=== PATIENT | female | born 1985 | race Caucasian/White ===

== ENCOUNTER 2019-07-11 17:37 | Inpatient (IN) | payer MEDICARE, OTHER ==
[~2019-07-11] VITALS: Ht 170.2 cm; Wt 134.8 kg
[2019-07-11] MEDS ORDERED: METO1TAB7 PO (17:53)
[2019-07-11] MEDS ORDERED: CITA20TA6 PO (17:53)
[2019-07-11] MEDS ORDERED: GABA-843 PO (17:53)
[2019-07-11] MEDS ORDERED: AMLO5TAB6 PO (17:53)
[2019-07-11 18:36] LABS: BASO % 0.2 % (0.0-1.0); EOS % 0.3 % (0.0-3.0); HEMATOCRIT 31.3 % (36.0-47.0); HEMOGLOBIN 8.7 g/dl (12.0-15.5); LYMPH # 1.2 10^3/uL (1.5-5.0); MEAN CORPUSCULAR HEMOGLOBIN 23.8 pg (27.0-33.0); MEAN CORPUSCULAR HGB CONC 27.8 g/dl (32.0-36.5); MEAN CORPUSCULAR VOLUME 85.5 fl (80.0-96.0); MONO # 1.3 10^3/uL (0.0-0.8); MONO % 8.6 % (0.0-5.0); NEUTROPHILS # 12.1 10^3/uL (1.5-8.5); PLATELET COUNT, AUTOMATED 238 10^3/uL (150-450); RED BLOOD COUNT 3.66 10^6/uL (4.00-5.40); WHITE BLOOD COUNT 14.8 10^3/uL (4.0-10.0)
[2019-07-11 19:09] LABS: ALBUMIN 3.2 GM/DL (3.2-5.2); ALT/SGPT 63 U/L (12-78); BILIRUBIN,DIRECT 1.9 MG/DL (0.0-0.2); BILIRUBIN,TOTAL 2.8 MG/DL (0.2-1.0); BLOOD UREA NITROGEN 8 MG/DL (7-18); CALCIUM LEVEL 8.9 MG/DL (8.5-10.1); CARBON DIOXIDE LEVEL 19 MEQ/L (21-32); CHLORIDE LEVEL 102 MEQ/L (98-107); CREATININE FOR GFR 0.66 MG/DL (0.55-1.30); GLOMERULAR FILTRATION RATE > 60.0 (>60); GLUCOSE, FASTING 145 MG/DL (70-100); LIPASE 16374 U/L (73-393); POTASSIUM SERUM 4.1 MEQ/L (3.5-5.1); SODIUM LEVEL 134 MEQ/L (136-145); TOTAL PROTEIN 7.3 GM/DL (6.4-8.2)
[2019-07-11] MEDS ORDERED: ONDANSETRON 4MG/2ML VIAL (J2405) IV ONE (19:30)
[2019-07-11] MEDS ORDERED: MORPHINE 4 MG/ML 1ML VIAL/SYRINGE (J2270) IV ONE ×2 (19:30→22:45)
[2019-07-11] MEDS ORDERED: ISOVUE-370 76% 100ML VIAL (Q9967) As Ordered ONE (19:37)
[2019-07-11 19:50] LABS: URINE PREG TEST NEGATIVE (NEGATIVE)
[2019-07-11] MEDS: NS 1,000 ML IV SCH (20:31)
--- NOTE | 2019-07-11 22:34 | REPVR ---
PROCEDURE INFORMATION: Exam: CT Abdomen and Pelvis With Contrast Exam date and time: 07/11/2019 8:03 PM Clinical history: 34 years old, female; Abdominal pain; Epigastric; Patient HX: Elevatd lipase; Additional info: Upper abd pain, elevated lipase TECHNIQUE: Imaging protocol: Computed tomography of the abdomen and pelvis with intravenous contrast. Radiation optimization: All CT scans at this facility use at least one of these dose optimization techniques: automated exposure control; mA and/or kV adjustment per patient size (includes targeted exams where dose is matched to clinical indication); or iterative reconstruction. Contrast material: ISOVUE 370; Contrast volume: 100 ml; Contrast route: IV; COMPARISON: No relevant prior studies available. FINDINGS: Lungs: Clear lung bases. Heart: The heart is normal in size and there is no pericardial effusion. Liver: There is severe fatty infiltration of the liver. Enhancing lesion anterior aspect of the liver is probably a hemangioma. A followup CT scan in 6 months would be important for reevaluation. If there are old studies they would be helpful to obtain for comparison. Gallbladder and bile ducts: The gallbladder is fluid-filled. Spleen: There is mild prominence of the spleen. Adrenals: Normal. No mass. Kidneys and ureters: There is enhancement of the kidneys. Stomach and bowel: The patient has had gastric bypass procedure. There postoperative changes in the left abdomen are previous gastric bypass. Appendix: No evidence of appendicitis. Intraperitoneal space: There is no evidence of pneumoperitoneum. Pancreas: There is opacification of the SMA. There is hazy increased density along the posterior margin of the pancreas and surrounding the celiac artery and SMA. This is also along the course of the SMV and probably the result of inflammation and phlegmon from pancreatitis. Followup studies would be helpful to see if this resolves. Fluid and inflammation is noted anterior to gerotas fascia left kidney. There is opacification of the aorta which appears intact. Lymph nodes: There is no evidence of lymphadenopathy. Bladder: A small amount of urine in the urinary bladder. Reproductive: Normal size uterus. There is a 3 CM cyst of the right ovary and also calcification of the right ovary. I would recommend correlation with pelvic ultrasound. Cyst with calcification can be indicative of a teratoma. If there are old studies they would be great benefit for comparison. Bones/joints: There are old nonunited rib fracture is posterior ribs bilaterally. Soft tissues: Unremarkable. Other findings: There is opacification of the SMV. IMPRESSION: 1. Severe fatty infiltration of the liver. 2. Enhancing liver lesion probably a hemangioma recommend followup CT in 6 months or obtaining old exams for comparison. 3. Inflammation, phlegmon and fluid along the posterior aspect of the pancreas and surrounding the celiac artery and SMA. This extends along gerotas fascia on the left and probably the result of changes of pancreatitis. 4. 3 cm cystic structure of the right ovary with calcification could be a teratoma. Recommend correlation with ultrasound and also obtaining old exams for comparison. Electronically signed by: Sohan Layne On 07/11/2019 22:34:11 PM
[2019-07-11 23:18] LABS: ETHYL ALCOHOL (ETHANOL) < 0.003 % (0.000-0.010)
--- NOTE | 2019-07-11 23:25 | HPEPDOC ---
[facility] Medical History & Physical Date of Admission Jul 11, 2019 Date of Service: Jul 11, 2019 Primary Care Physician: A Attending Physician: ROSANA CALERO MD History and Physical TIME OF SERVICE: 09 21 CHIEF COMPLAINT: abdominal pain HISTORY OF PRESENT ILLNESS: This is a 34 year female who presents with complaints of 8 out of 10 in severity, one day in duration, left-sided abdominal pain that radiates to her back. The pain improved to 4 of 10 in severity after receiving pain meds in the ED. She attributes the pain to drinking a lot due to life stressors. Associated symptoms include nausea. She denies vomiting. Per discussion with the ED provider her last drink was on Wednesday. 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 She received morphine, & Zofran REVIEW OF SYSTEMS: 12 point review of systems negative except as listed in HPI PAST MEDICAL/ SURGICAL HISTORY: Chronic hypertension. Status post gastric bypass. Anxiety Depression. Fibro-myalgia. Status post right L5-S1 decompressive lumbar laminectomy SOCIAL HISTORY: Smokes daily Drinks alcohol frequently FAMILY HISTORY: Crohns Hypertension Hypothyroidism ALLERGIES: Please see below. HOME MEDICATIONS: Please see below. PHYSICAL EXAMINATION: VITAL SIGNS: Please see below. GENERAL APPEARANCE: Well-nourished, well-developed, not in apparent distress HEENT: Normocephalic atraumatic, mucous members moist and pink CARDIOVASCULAR: Rate and rhythm. No murmurs, rubs or gallops, no lower extremity edema, radial pulses intact LUNGS: Clear to auscultation bilaterally on room air ABDOMEN: Left mid upper abdomen tender on palpation, bowel sounds are hypoactive MUSCULOSKELETAL: Range of motion intact in all 4 extremities INTEGUMENT: there is no Austin sign, no Foxs sign, no Bagley Kennedy sign NEUROLOGICAL: Cranial 2-12 are grossly intact. Speech is not dysarthric PSYCHIATRIC: Alert and oriented to person, place and time, able to understand and follow commands LABORATORY DATA: See below. IMAGING: CT of the abdomen showed "IMPRESSION: 1. Severe fatty infiltration of the liver. 2. Enhancing liver lesion probably a hemangioma recommend follow up CT in 6 months or obtaining old exams for comparison. 3. Inflammation, phlegmon and fluid along the posterior aspect of the pancreas and surrounding the celiac artery and SMA. This extends along gerotas fascia on the left and probably the result of changes of pancreatitis. 4. 3 cm cystic structure of the right ovary with calcification could be a iveth sylvie. Recommend correlation with ultrasound and also obtaining old exams for comparison. " MICROBIOLOGY: Please see below. ASSESSMENT: is a 34 yr old F w a PMH of Chronic hypertension, hx of gastric bypass, Anxiety, Depression and Fibro-myalgia who is admitted for acute pancreatitis. PLAN: 1. Acute Pancreatitis Diagnosis made on the basis of abdominal pain, elevated lipase, and CT findings Serum ethanol within normal limit AST and alkaline phosphatase elevated BISAP Score to predict mortality in pancreatitis = 1 points = increasing risk of mortality Plan: Plan: NPO/ IVF / f/u serum ETO & liver US / IV toradol & morphine PRN for pain 2. SIRS / Sepsis possibly secondary to UTI Symptoms include abdominal pain UA is positive for leukocyte esterase, WBCs and bacteria. WBC # 14.8 / HR >100 Plan: telemetry / Sepsis protocol w lactic acid / Levofloxacin / c/w IVF / f/u blood cx, UCx 3. Alcohol Abuse Plan: admit to tele, Ativan per CIWA or SAS protocol / seizure precautions / fall precautions / Thiamine & Folic / IVF / Zofran PRN for n/v 4. Ovarian Lesion Plan: fu US of ovaries 5. Hemangioma of Liver Plan: f/u repeat CT of abdomen in 6 months 6. Fatty liver/ Alcoholic Liver Cirrhosis AST:ALT ratio > 2:1 Plan: Recommend weight loss abstinence from alcohol 7. Obesity -BMI 43.3 -s/p bariatric surgery Plan: complicates care as she needs special equipment / can f/u w PCP for pressure steamer tender consult / recommend cardiovascular exercise for 40 min 4-5 days a week DVT Px w Lovenox Vital Signs Vital Signs Date Time Temp Pulse Resp B/P (MAP) Pulse Ox O2 Delivery O2 Flow Rate FiO2 07/11/19 22:40 16 07/11/19 22:30 126/59 (81) 07/11/19 22:21 104 96 07/11/19 17:37 99.2 Room Air Laboratory Data Labs 24H Laboratory Tests 2 07/11/19 18:27: Immature Granulocyte % (Auto) 0.9, White Blood Count 14.8H, Red Blood Count 3.66L, Hemoglobin 8.7L, Hematocrit 31.3L, Mean Corpuscular Volume 85.5, Mean Corpuscular Hemoglobin 23.8L, Mean Corpuscular Hemoglobin Concent 27.8L, Red Cell Distribution Width 17.2H, Platelet Count 238, Neutrophils (%) (Auto) 82.0H, Lymphocytes (%) (Auto) 8.0L, Monocytes (%) (Auto) 8.6H, Eosinophils (%) (Auto) 0.3, Basophils (%) (Auto) 0.2, Neutrophils # (Auto) 12.1H, Lymphocytes # (Auto) 1.2L, Monocytes # (Auto) 1.3H, Eosinophils # (Auto) 0.0, Basophils # (Auto) 0.0, Nucleated Red Blood Cells % (auto) 0.2H, Anion Gap 13, Glomerular Filtration Rate > 60.0, Calcium Level 8.9, Aspartate Amino Transf (AST/SGOT) 128H, Alanine Aminotransferase (ALT/SGPT) 63, Alkaline Phosphatase 297H, Total Bilirubin 2.8H, Direct Bilirubin 1.9H, Total Protein 7.3, Albumin 3.2, Albumin/Globulin Ratio 0.78L, Lipase 37899P, Ethyl Alcohol Level < 0.003 07/11/19 18:34: Urine Color ANU, Urine Appearance HAZY, Urine pH 6.0, Urine Specific [place] 1.023, Urine Protein 1+H, Urine Glucose (UA) NEGATIVE, Urine Ketones 1+H, Urine Blood NEGATIVE, Urine Nitrite NEGATIVE, Urine Bilirubin 1+H, Urine Urobilinogen 4.0H, Urine Leukocyte Esterase TRACEH, Urine WBC (Auto) 10H, Urine RBC (Auto) 2, Urine Hyaline Casts (Auto) 0, Urine Bacteria (Auto) 1+H, Urine Squamous Epithelial Cells 6, Urine Mucus (Auto) SMALL, Urine Sperm (Auto) 07/11/19 18:54: Urine Test NEGATIVE CBC/BMP Laboratory Tests 07/11/19 18:27 Red Blood Count 3.66 L, Mean Corpuscular Volume 85.5, Mean Corpuscular Hemoglobin 23.8 L, Mean Corpuscular Hemoglobin Concent 27.8 L, Red Cell Distribution Width 17.2 H, Neutrophils (%) (Auto) 82.0 H, Lymphocytes (%) (Auto) 8.0 L, Monocytes (%) (Auto) 8.6 H, Eosinophils (%) (Auto) 0.3, Basophils (%) (Auto) 0.2, Neutrophils # (Auto) 12.1 H, Lymphocytes # (Auto) 1.2 L, Monocytes # (Auto) 1.3 H, Eosinophils # (Auto) 0.0, Basophils # (Auto) 0.0 Microbiology Microbiology 07/11/19 Urine Culture, Received Pending Home Medications Scheduled Amlodipine Besylate (Amlodipine Besylate) 5 Mg Tablet, 5 MG PO DAILY NOON Citalopram Hydrobromide (Citalopram HBr) 20 Mg Tablet, 20 MG PO DAILY Gabapentin (Gabapentin) 300 Mg Capsule, 300 MG PO TID Metoprolol Succinate (Metoprolol Succinate) 50 Mg Tab.er.24h, 50 MG PO BID Allergies Coded Allergies: No Known Allergies (Unverified , 07/11/19) A-FIB/CHADSVASC A-FIB History Current/History of A-Fib/PAF?: No Current PO Anticoag Therapy: ROSANA Kebede MD Jul 11, 2019 23:25
[2019-07-12] VITALS (7 sets, daily range): BP systolic 107–131; BP diastolic 61–72
[2019-07-12] MEDS ORDERED: KETOROLAC 30 MG/ML VIAL (J1885) As Ordered ONE (01:04)
[2019-07-12] MEDS ORDERED: LORazepam 1 MG TAB As Ordered ONE (02:08)
[2019-07-12] MEDS: NS 1,000 ML IV SCH ×4 (02:54→19:28)
[2019-07-12] MEDS ORDERED: LevoFLOXacin IV 750 MG in IV 1 EA IV SCH (04:00)
[2019-07-12] MEDS ORDERED: LevoFLOXacin/DEXTROSE 750 MG/150 ML BAG (J1956) As Ordered ONE (04:46)
[2019-07-12 05:35] LABS: HEMATOCRIT 27.8 % (36.0-47.0); HEMOGLOBIN 7.6 g/dl (12.0-15.5); MEAN CORPUSCULAR HEMOGLOBIN 24.1 pg (27.0-33.0); MEAN CORPUSCULAR HGB CONC 27.3 g/dl (32.0-36.5); PLATELET COUNT, AUTOMATED 204 10^3/uL (150-450); RED BLOOD COUNT 3.16 10^6/uL (4.00-5.40); WHITE BLOOD COUNT 14.3 10^3/uL (4.0-10.0)
[2019-07-12] MEDS ORDERED: MORPHINE 4 MG/ML 1ML VIAL/SYRINGE (J2270) As Ordered ONE (05:36)
[2019-07-12] MEDS: MORPHINE 4 MG/ML 1ML VIAL/SYRINGE (J2270) IV PRN ×4 (05:40→21:39)
[2019-07-12] MEDS ORDERED: ONDANSETRON 4MG/2ML VIAL (J2405) As Ordered ONE (05:46)
[2019-07-12] MEDS: ONDANSETRON 4MG/2ML VIAL (J2405) IV PRN ×2 (05:47→17:30)
[2019-07-12 06:09] LABS: ALBUMIN 2.7 GM/DL (3.2-5.2); ALT/SGPT 47 U/L (12-78); BILIRUBIN,TOTAL 2.6 MG/DL (0.2-1.0); BLOOD UREA NITROGEN 8 MG/DL (7-18); CALCIUM LEVEL 8.4 MG/DL (8.5-10.1); CARBON DIOXIDE LEVEL 23 MEQ/L (21-32); CHLORIDE LEVEL 107 MEQ/L (98-107); CREATININE FOR GFR 0.57 MG/DL (0.55-1.30); GLOMERULAR FILTRATION RATE > 60.0 (>60); GLUCOSE, FASTING 113 MG/DL (70-100); POTASSIUM SERUM 3.6 MEQ/L (3.5-5.1); SODIUM LEVEL 139 MEQ/L (136-145); TOTAL PROTEIN 6.6 GM/DL (6.4-8.2)
[2019-07-12] MEDS: ENOXAPARIN 40 MG/0.4 ML SYRINGE (J1650) SC SCH (09:28)
[2019-07-12] MEDS: METOPROLOL SUCC (TopROL XL) 50MG **XL** TAB PO SCH ×2 (09:31→20:53)
[2019-07-12] MEDS: GABAPENTIN 300 MG CAP PO SCH ×3 (09:31→20:52)
[2019-07-12] MEDS: THIAMINE HCL 200 MG/2 ML VIAL (J3411) IM SCH (09:31)
[2019-07-12] MEDS: CitaloPRAM (CeleXA) 20 MG TAB PO SCH (09:31)
[2019-07-12] MEDS: LORazepam 2 MG TAB PO PRN (10:57)
[2019-07-12] MEDS: KETOROLAC 30 MG/ML VIAL (J1885) IV PRN (10:57)
[2019-07-12] MEDS ORDERED: KCL 40MEQ in NS 1000ML 1,000 ML IV SCH (11:00)
[2019-07-12] MEDS: FOLIC ACID 1 MG in NS 50 ML IV SCH (11:26)
[2019-07-12] MEDS: amLODIPine 5 MG TAB PO SCH (11:27)
--- NOTE | 2019-07-12 11:36 | REP ---
RIGHT UPPER QUADRANT ULTRASOUND: Real-time sonographic evaluation of right upper quadrant performed. Correlation is made with CT 07/11/2019. Mobile gallstones are seen in the gallbladder. There is no gallbladder wall thickening. There is no free fluid. There is no intrahepatic or extrahepatic biliary dilatation, common bile duct measuring 4 mm in maximum diameter. There is diffuse fatty infiltration of the liver. There is a hypoechoic area anteriorly in the liver 2.4 x 1.9 x 2.6 cm, probably representing an area of spared parenchyma. No mass is seen on the CT of 07/11/2019. Visualized pancreas is grossly unremarkable. It is not optimally seen due to overlying bowel gas. Right kidney demonstrates no hydronephrosis with normal size 12.8 cm in length. IMPRESSION: Gallstones in the gallbladder without gallbladder wall thickening, pericholecystic fluid, or biliary dilatation. Diffuse fatty infiltration of the liver. Hypoechoic area anteriorly has a maximum diameter of 2.6 cm, probably representing an area of spared parenchyma, with no mass seen on the CT of 07/11/2019. Electronically Signed by Kelvin Bagley MD 07/12/2019 03:18 P
--- NOTE | 2019-07-12 13:41 | REP ---
PELVIC ULTRASOUND: Real-time sonographic evaluation of the pelvis performed utilizing trans abdominal and endovaginal technique. Bladder measures 11.3 x 9.0 x 9.5 cm. The uterus measures 7.9 x 2.9 x 4.2 cm. Endometrial thickness is 5 mm. Right ovary measures 4.1 x 3.0 x 3.5 cm. Left ovary measures 3.5 x 3.3 x 2.3. On duplex Doppler evaluation, there is no evidence of torsion of either ovary. There is a cystic structure in the right ovary 1.3 x 1.1 x 1.4 cm with a calcification along the posterior wall. There is mild free fluid in the cul-de-sac. IMPRESSION: No torsion. Small right ovarian cyst with a calcification along the posterior wall, maximum diameter of the cyst is 1.4 cm. Mild free fluid in the cul-de-sac. Electronically Signed by Kelvin Bagley MD 07/12/2019 03:21 P
--- NOTE | 2019-07-12 17:30 | IPNPDOC ---
Text Note Date of Service The patient was seen on 07/12/19. NOTE Subjective: Patient complains of vague abdominal pain mostly in the left upper quadrant 5 out of 7. Also she complains of nausea and loss of appetite. Patient denies fever, chills, shortness of breath, palpitations or diarrhea. Patient denies dysuria Objective: VITAL SIGNS: Please see below. GENERAL APPEARANCE: Morbidly obese female in moderate distress HEENT: Normocephalic atraumatic, mucous members moist and pink CARDIOVASCULAR: Rate and rhythm. No murmurs, rubs or gallops, no lower extremity edema, radial pulses intact LUNGS: Clear to auscultation bilaterally on room air ABDOMEN: Moderately tender in the left upper quadrant, nondistended, no rebound, Graf's sign is negative MUSCULOSKELETAL: Range of motion intact in all 4 extremities NEUROLOGICAL: Cranial 2-12 are grossly intact. Speech is not dysarthric PSYCHIATRIC: Alert and oriented to person, place and time, able to understand and follow commands ASSESSMENT: is a 34 yr old F w a PMH of Chronic hypertension, hx of gastric bypass, Anxiety, Depression and Fibro-myalgia who is admitted for acute pancreatitis. Abdominal ultrasound showed gallstones in the gallbladder without gallbladder wall thickening, pericholecystic fluid, or biliary dilatation. Diffuse fatty infiltration of the liver PLAN: 1. Acute Pancreatitis Most likely secondary to choledocholithiasis, given findings on the abdominal ultrasound with multiple gallstones. Gallbladder stone most likely passed through CBD. Aggressive IV fluid Pain management, nothing by mouth for now Antiemetics Abdominal ultrasound showed gallstones in the gallbladder without gallbladder wall thickening, pericholecystic fluid, or biliary dilatation. Diffuse fatty infiltration of the liver. Patient will need cholecystectomy after resolution of acute pancreatitis Appreciate/agree with surgical consult 2. SIRS Most likely secondary to acute pancreatitis Patient denies dysuria, and I doubt that patient has infectious process. Leukocytosis most likely reactive I DC antibiotic 3. Alcohol Abuse CIWA 4. Ovarian Lesion Plan: fu US of ovaries 5. Hemangioma of Liver Plan: f/u repeat CT of abdomen in 6 months 6. Fatty liver/ Alcoholic Liver Cirrhosis Follow-up with accountant helper in the outpatient settings and PCP She will benefit from GI consult in the outpatient settings 7. 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[employer] consult VS,Raul, I+O VS, Raul, I+O Laboratory Tests 07/11/19 18:27 Red Blood Count 3.66 L, Mean Corpuscular Volume 85.5, Mean Corpuscular Hemoglo bin 23.8 L, Mean Corpuscular Hemoglobin Concent 27.8 L, Red Cell Distribution Width 17.2 H, Neutrophils (%) (Auto) 82.0 H, Lymphocytes (%) (Auto) 8.0 L, Monocytes (%) (Auto) 8.6 H, Eosinophils (%) (Auto) 0.3, Basophils (%) (Auto) 0.2, Neutrophils # (Auto) 12.1 H, Lymphocytes # (Auto) 1.2 L, Monocytes # (Auto) 1.3 H, Eosinophils # (Auto) 0.0, Basophils # (Auto) 0.0 07/12/19 05:24 Red Blood Count 3.16 L, Mean Corpuscular Volume 88.0, Mean Corpuscular Hemoglobin 24.1 L, Mean Corpuscular Hemoglobin Concent 27.3 L, Red Cell Distribution Width 17.2 H, Calcium Level 8.4 L, Aspartate Amino Transf (AST/SGOT) 69 H, Alanine Aminotransferase (ALT/SGPT) 47, Alkaline Phosphatase 235 H, Total Bilirubin 2.6 H, Total Protein 6.6, Albumin 2.7 L Vital Signs Date Time Temp Pulse Resp B/P (MAP) Pulse Ox O2 Delivery O2 Flow Rate FiO2 07/12/19 17:01 100.1 118 18 120/72 (88) 95 07/12/19 10:00 Room Air PAULINO BRUNO Jul 12, 2019 17:30
[2019-07-12 18:11] LABS: HEMATOCRIT 27.3 % (36.0-47.0); HEMOGLOBIN 7.4 g/dl (12.0-15.5); MEAN CORPUSCULAR HEMOGLOBIN 24.5 pg (27.0-33.0); MEAN CORPUSCULAR HGB CONC 27.1 g/dl (32.0-36.5); MEAN CORPUSCULAR VOLUME 90.4 fl (80.0-96.0); PLATELET COUNT, AUTOMATED 209 10^3/uL (150-450); RED BLOOD COUNT 3.02 10^6/uL (4.00-5.40); WHITE BLOOD COUNT 15.8 10^3/uL (4.0-10.0)
--- NOTE | 2019-07-12 20:36 | ECGEPIP ---
[facility] - ED Test Date: 2019-07-11 Pat Name: BROOKS SALMON Department: Room: 01[facility] Gender: Female Ostrich Farmer: VALERI : 1985 Requested By: RUPINDER Abraham Order Number: [id number] Reading MD: Sissy York Measurements Intervals [place] Rate: 121 P: 47 DC: 134 QRS: 26 QRSD: 80 T: -3 QT: 338 QTc: 480 Interpretive Statements SINUS TACHYCARDIA NONSPECIFIC T-WAVE ABNORMALITY ABNORMAL RHYTHM ECG NO PRIOR Electronically Signed on 07-12-2019 20:36:08 EDT by Sissy York
[2019-07-13] VITALS (12 sets, daily range): BP systolic 109–152; BP diastolic 52–100
[2019-07-13 00:13] LABS: HEMATOCRIT 24.2 % (36.0-47.0); MEAN CORPUSCULAR HEMOGLOBIN 24.4 pg (27.0-33.0); MEAN CORPUSCULAR HGB CONC 27.7 g/dl (32.0-36.5); PLATELET COUNT, AUTOMATED 223 10^3/uL (150-450); RED BLOOD COUNT 2.75 10^6/uL (4.00-5.40); WHITE BLOOD COUNT 16.9 10^3/uL (4.0-10.0)
[2019-07-13 00:20] LABS: HEMOGLOBIN 6.7 g/dl (12.0-15.5)
[2019-07-13] MEDS: NS 1,000 ML IV SCH ×3 (00:23→16:48)
[2019-07-13] MEDS: ONDANSETRON 4MG/2ML VIAL (J2405) IV PRN ×3 (00:26→20:44)
[2019-07-13] MEDS: MORPHINE 4 MG/ML 1ML VIAL/SYRINGE (J2270) IV PRN ×5 (01:38→20:43)
[2019-07-13] MEDS: LORazepam 2 MG TAB PO PRN (02:40)
[2019-07-13 06:23] LABS: HEMATOCRIT 23.8 % (36.0-47.0); MEAN CORPUSCULAR HEMOGLOBIN 24.2 pg (27.0-33.0); MEAN CORPUSCULAR HGB CONC 27.3 g/dl (32.0-36.5); MEAN CORPUSCULAR VOLUME 88.5 fl (80.0-96.0); PLATELET COUNT, AUTOMATED 222 10^3/uL (150-450); RED BLOOD COUNT 2.69 10^6/uL (4.00-5.40)
[2019-07-13 06:25] LABS: HEMOGLOBIN 6.5 g/dl (12.0-15.5)
[2019-07-13 06:49] LABS: ALBUMIN 2.3 GM/DL (3.2-5.2); ALT/SGPT 37 U/L (12-78); BILIRUBIN,TOTAL 2.7 MG/DL (0.2-1.0); BLOOD UREA NITROGEN 6 MG/DL (7-18); CALCIUM LEVEL 7.7 MG/DL (8.5-10.1); CARBON DIOXIDE LEVEL 22 MEQ/L (21-32); CHLORIDE LEVEL 106 MEQ/L (98-107); CREATININE FOR GFR 0.46 MG/DL (0.55-1.30); GLOMERULAR FILTRATION RATE > 60.0 (>60); GLUCOSE, FASTING 80 MG/DL (70-100); MAGNESIUM LEVEL 1.9 MG/DL (1.8-2.4); POTASSIUM SERUM 3.8 MEQ/L (3.5-5.1); SODIUM LEVEL 137 MEQ/L (136-145); TOTAL PROTEIN 5.9 GM/DL (6.4-8.2)
[2019-07-13] MEDS ORDERED: NS 1,000 ML IV SCH (09:00)
[2019-07-13] MEDS: CitaloPRAM (CeleXA) 20 MG TAB PO SCH (09:24)
[2019-07-13] MEDS: GABAPENTIN 300 MG CAP PO SCH ×3 (09:24→20:19)
[2019-07-13] MEDS: METOPROLOL SUCC (TopROL XL) 50MG **XL** TAB PO SCH ×2 (09:24→20:19)
[2019-07-13] MEDS: ENOXAPARIN 40 MG/0.4 ML SYRINGE (J1650) SC SCH (09:25)
[2019-07-13] MEDS: FOLIC ACID 1 MG in NS 50 ML IV SCH (09:25)
[2019-07-13] MEDS: THIAMINE HCL 200 MG/2 ML VIAL (J3411) IM SCH (09:25)
--- NOTE | 2019-07-13 11:43 | IPNPDOC ---
Text Note Date of Service The patient was seen on 07/13/19. NOTE Subjective: Patient complains of vague abdominal pain mostly in the left upper quadrant associated with nausea and loss of appetite. Patient denies fever, chills, shortness of breath, palpitations or diarrhea. Patient denies dysuria. Objective: VITAL SIGNS: Please see below. GENERAL APPEARANCE: Morbidly obese female in moderate distress HEENT: Normocephalic atraumatic, mucous members moist and pink CARDIOVASCULAR: Rate and rhythm. No murmurs, rubs or gallops, no lower extremity edema, radial pulses intact LUNGS: Clear to auscultation bilaterally on room air ABDOMEN: Moderately tender in the left upper quadrant, nondistended, no rebound, Graf's sign is negative MUSCULOSKELETAL: Range of motion intact in all 4 extremities NEUROLOGICAL: Cranial 2-12 are grossly intact. Speech is not dysarthric PSYCHIATRIC: Alert and oriented to person, place and time, able to understand and follow commands ASSESSMENT: is a 34 yr old F w a PMH of Chronic hypertension, hx of gastric bypass, Anxiety, Depression and Fibro-myalgia who is admitted for acute pancreatitis. Abdominal ultrasound showed gallstones in the gallbladder without gallbladder wall thickening, pericholecystic fluid, or biliary dilatation. Diffuse fatty infiltration of the liver PLAN: Acute Pancreatitis Most likely secondary to choledocholithiasis, given findings on the abdominal ultrasound with multiple gallstones. Gallbladder stone most likely passed through CBD. Aggressive IV fluid I upgraded her diet to clear liquid Antiemetics Abdominal ultrasound showed gallstones in the gallbladder without gallbladder wall thickening, pericholecystic fluid, or biliary dilatation. Diffuse fatty infiltration of the liver. Patient will need cholecystectomy after resolution of acute pancreatitis Total bilirubin continues to be high 2.6 today. I talked to Dr. Izaguirre , he recommended MRCP Anemia Patient has chronic anemia at baseline secondary to gastric bypass She denied any blood in her stool or intravaginal bleeding, CAT scan of abdomen was done yesterday and it was negative for acute bleed Unlikely patient has DIC given normal plt count Stool for occult blood ordered Most likely dilution effect after IV fluid 2 units of blood ordered 2. SIRS Most likely secondary to acute pancreatitis Patient denies dysuria, and I doubt that patient has infectious process. Leukocytosis most likely reactive. Patient does not have fever I DC antibiotic 3. Alcohol Abuse CIWA 4. Ovarian Lesion Plan: fu US of ovaries 5. Hemangioma of Liver Plan: f/u repeat CT of abdomen in 6 months 6. Fatty liver/ Alcoholic Liver Cirrhosis Follow-up with process architect in the outpatient settings and PCP She will benefit from GI consult in the outpatient settings 7. 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 [employer] Sl[employer] consult VS,Fishbone, I+O VS, Fishbone, I+O Laboratory Tests 07/12/19 17:55 Red Blood Count 3.02 L, Mean Corpuscular Volume 90.4, Mean Corpuscular Hemoglobin 24.5 L, Mean Corpuscular Hemoglobin Concent 27.1 L, Red Cell Distribution Width 17.4 H 07/12/19 23:55 Red Blood Count 2.75 L, Mean Corpuscular Volume 88.0, Mean Corpuscular Hemoglobin 24.4 L, Mean Corpuscular Hemoglobin Concent 27.7 L, Red Cell Distrib ution Width 17.9 H 07/13/19 06:02 Red Blood Count 2.69 L, Mean Corpuscular Volume 88.5, Mean Corpuscular Hemoglobin 24.2 L, Mean Corpuscular Hemoglobin Concent 27.3 L, Red Cell Distribution Width 17.9 H, Calcium Level 7.7 L, Aspartate Amino Transf (AST/SGOT) 68 H, Alanine Aminotransferase (ALT/SGPT) 37, Alkaline Phosphatase 186 H, Total Bilirubin 2.7 H, Total Protein 5.9 L, Albumin 2.3 L Vital Signs Date Time Temp Pulse Resp B/P (MAP) Pulse Ox O2 Delivery O2 Flow Rate FiO2 07/13/19 09:24 109 109/52 07/13/19 08:00 98.6 18 96 07/12/19 10:00 Room Air I&O- Last 24 Hours up to 6 AM 07/13/19 05:59 Intake Total 2150 ml Output Total 0 ml Balance 2150 ml PAULINO BRUNO DO Jul 13, 2019 11:43
[2019-07-13] MEDS: amLODIPine 5 MG TAB PO SCH (12:01)
[2019-07-13 13:35] LABS: IRON (FE) 47 UG/DL (50-170); PERCENT SATURATION 14.8 % (13.2-45.0); TOTAL IRON BINDING CAPACITY 317 UG/DL (250-450)
[2019-07-13 13:44] LABS: VITAMIN B12 LEVEL 621 PG/ML (247-911)
--- NOTE | 2019-07-13 15:23 | REP ---
MRCP: MRCP exam is accomplished utilizing multiple heavily T2-weighted sequences int he axial and coronal planes with MIP reconstruction images. The gallbladder is mildly distended with two or three subcentimeter calculi in the dependent portion. There is no significant gallbladder wall edema and no pericholecystic fluid. There is no intrahepatic biliary dilatation. Common bile duct is normal in caliber, approximately 3 mm maximally. There is no evidence of choledocholithiasis. Pancreatic duct is normal in caliber. Peripancreatic inflammatory changes are compatible with pancreatitis. There is no significant free fluid or fluid collection. In the liver, there is a hyperintense nodule on T2-weighted images which is lobulated and measures approximately 2 cm in diameter. This probably represents a hemangioma. IMPRESSION: Two or three subcentimeter gallstones in the gallbladder. No gallbladder wall edema. No biliary dilatation or evidence of choledocholithiasis. Findings compatible with pancreatitis. Hyperintense nodule on T2 images right lobe liver approximately 2 cm in diameter is compatible with hemangioma. Electronically Signed by Kelvin Bagley MD 07/13/2019 04:59 P
[2019-07-13 17:16] LABS: HEMATOCRIT 29.4 % (36.0-47.0); HEMOGLOBIN 8.6 g/dl (12.0-15.5); MEAN CORPUSCULAR HEMOGLOBIN 26.2 pg (27.0-33.0); MEAN CORPUSCULAR HGB CONC 29.3 g/dl (32.0-36.5); MEAN CORPUSCULAR VOLUME 89.6 fl (80.0-96.0); PLATELET COUNT, AUTOMATED 226 10^3/uL (150-450); RED BLOOD COUNT 3.28 10^6/uL (4.00-5.40); WHITE BLOOD COUNT 14.1 10^3/uL (4.0-10.0)
[2019-07-13 17:30] LABS: INR 1.11
--- NOTE | 2019-07-13 17:49 | CR ---
DATE OF CONSULTATION: 07/13/2019 STATUS OF THE PATIENT: Inpatient. CONSULTATION REPORT FOR: Hospitalist service. REASON FOR CONSULTATION: Pancreatitis, anemia, abnormal liver enzymes. HISTORY OF PRESENT ILLNESS: Ms. Hernandez is a 34-year-old female without any significant past medical history except for morbid obesity and alcoholism. She was in her usual state of health until approximately 2-3 days ago when she developed abdominal pain, nausea and darkening of her urine. She presented to the emergency room where further evaluation including a CT and ultrasound were performed. She was found to have pancreatitis on laboratory work and CAT scan and is noted to have multiple gallstones. She is significantly anemic and her hemoglobin has drifted downwards with hydration for her pancreatitis. She denies any melena, hematochezia, hematemesis, or any tarry black stools. She denies any fevers or chills. PAST MEDICAL HISTORY: Hypertension, depression, anxiety, alcohol abuse. PAST SURGICAL HISTORY: Jennifer-en-Y gastric bypass in 2007 and back surgery. SOCIAL HISTORY: Positive for tobacco. Positive for alcohol, frequent binging and eight beers per day for the past 20 years. FAMILY HISTORY: Positive for Crohn's disease, negative for chronic liver disease. ALLERGIES: No known drug allergies. MEDICATIONS AT HOME: Amlodipine, gabapentin, and metoprolol. REVIEW OF SYSTEMS: GENERAL: Negative for night sweats, fevers or chills, weight loss. PULMONARY: Negative for hemoptysis, pleuritic-type chest pain. CARDIAC: Negative for orthopnea, paroxysmal nocturnal dyspnea (PND). GASTROINTESTINAL (GI): As per history of present illness (HPI). GENITOURINARY (): Negative for hematuria or dysuria. MUSCULOSKELETAL: Negative for myalgias, arthralgias. NEUROLOGICAL: Negative for focal numbness or weakness. VITAL SIGNS: Temperature 98.4, pulse is 100, respiratory rate is 18, blood pressure 144/92, pulse oximetry 96% on room air. GENERAL: She is awake, alert and oriented times three, in no acute distress. She is nontoxic in appearance. She appears uncomfortable, complaining of epigastric pain. HEAD, EYES, EARS, NOSE AND THROAT: Grossly without abnormalities. No oral thrush. I do not appreciate any definite icterus. NECK: Supple. No lymphadenopathy or thyromegaly. CHEST: Coarse, distant breath sounds but no rhonchi or crackles. ABDOMEN: Soft, positive but diminished bowel sounds, tender on deep palpation in the midepigastrium. No rebound tenderness. No masses or fluid is appreciated. Abdomen is obese. No organomegaly is definitely appreciated. EXTREMITIES: Negative for edema. Rectal examination deferred as per the patient's request. LABORATORY FINDINGS: Hemoglobin 8.7/6.7/6.5, MCV 85/88/88.5, WBCs 14.8/16.9/15.0, RDW 17.2/17.9/17.9, platelet count is 238/223/222. BUN is 08/06, creatinine 0.57/0.46, iron 47, TIBC 317, transferrin saturation 14.8, total bilirubin 2.6/2.7, direct bilirubin 1.9, AST 69/68, ALT 47/37, alkaline phosphatase 235/186, albumin 3.2/2.3. Vitamin B12 level is normal at 621. Lipase of June 2019 was 16,374. IMAGING STUDIES: 07/11/2019 CT abdomen and pelvis impression: 1. Severe fatty infiltration of the liver. 2. Enhancing liver lesion, probably hemangioma, recommend followup CT in six months or obtaining old examinations for comparison. 3. Inflammation, phlegmon and fluid along the posterior aspect of the pancreas and surrounding the celiac artery and SMA. This extends along the Gerota's fascia on the left and probably the result of changes of pancreatitis. 4. A 3 cm cystic structure in the right ovary with calcification, could be a teratoma. Recommend correlation with ultrasound and also obtaining old examinations for comparison. Liver ultrasound dated 07/12/2019 impression: 1. Gallstones in the gallbladder without gallbladder wall thickness, pericholecystic fluid or biliary dilation. 2. Diffuse fatty infiltration of the liver. 3. Hypoechoic area anteriorly has a maximum diameter of 2.6 cm, probably representing an area of stair parenchyma with no mass seen on the CT of 07/11/2019. MRCP dated 07/13/2019 impression: 1. Two or three subcentimeter gallstones in the gallbladder. 2. No gallbladder wall edema. 3. No biliary dilation or evidence of choledocholithiasis. 4. Findings compatible with pancreatitis. 5. Hyperintense nodule in the right lobe of the liver approximately 2 cm in diameter is compatible with a hemangioma. IMPRESSION: 1. Acute pancreatitis, most likely related to alcoholism. 2. Abnormal liver enzymes, most likely also related to alcoholic liver disease. However, the differential remains broad including alcohol, fatty liver, medications, infectious, inflammatory. 3. Gallstones in gallbladder. 4. Alcohol abuse. 5. Anemia. 6. Status post gastric bypass Jennifer-en-Y in 2007. 7. Morbid obesity. RECOMMENDATIONS: 1. Magnetic resonance cholangiopancreatography (MRCP) has been completed. 2. Laboratory work including antinuclear antibody, antimitochondrial antibody, iron levels, ceruloplasmin, hepatitis studies and coagulation profile. 3. Continue symptomatic treatment for acute pancreatitis. 4. Her anemia is quite profound and of uncertain etiology with relatively normal iron levels. I would recommend esophagogastroduodenoscopy (EGD) which will be scheduled tomorrow. 5. Consideration may be given to a hemolysis workup. 6. I will try to get some old laboratory work on her from her previous primary care doctor to compare and see if her liver enzymes are chronically elevated or if this is acute.
[2019-07-13 22:07] LABS: HEMATOCRIT 27.6 % (36.0-47.0); HEMOGLOBIN 8.1 g/dl (12.0-15.5); MEAN CORPUSCULAR HGB CONC 29.3 g/dl (32.0-36.5); MEAN CORPUSCULAR VOLUME 88.7 fl (80.0-96.0); PLATELET COUNT, AUTOMATED 204 10^3/uL (150-450); RED BLOOD COUNT 3.11 10^6/uL (4.00-5.40); WHITE BLOOD COUNT 14.6 10^3/uL (4.0-10.0)
[2019-07-14] VITALS (17 sets, daily range): BP systolic 125–144; BP diastolic 78–91
[2019-07-14] MEDS: NS 1,000 ML IV SCH ×3 (00:04→14:39)
[2019-07-14] MEDS: MORPHINE 4 MG/ML 1ML VIAL/SYRINGE (J2270) IV PRN ×5 (00:55→19:41)
[2019-07-14 04:13] LABS: HEMATOCRIT 28.4 % (36.0-47.0); HEMOGLOBIN 8.2 g/dl (12.0-15.5); MEAN CORPUSCULAR HEMOGLOBIN 25.9 pg (27.0-33.0); MEAN CORPUSCULAR HGB CONC 28.9 g/dl (32.0-36.5); MEAN CORPUSCULAR VOLUME 89.6 fl (80.0-96.0); PLATELET COUNT, AUTOMATED 226 10^3/uL (150-450); RED BLOOD COUNT 3.17 10^6/uL (4.00-5.40)
[2019-07-14 04:48] LABS: ALBUMIN 2.3 GM/DL (3.2-5.2); ALT/SGPT 38 U/L (12-78); BILIRUBIN,TOTAL 2.3 MG/DL (0.2-1.0); BLOOD UREA NITROGEN 4 MG/DL (7-18); CARBON DIOXIDE LEVEL 22 MEQ/L (21-32); CHLORIDE LEVEL 111 MEQ/L (98-107); CREATININE FOR GFR 0.62 MG/DL (0.55-1.30); GLOMERULAR FILTRATION RATE > 60.0 (>60); GLUCOSE, FASTING 77 MG/DL (70-100); MAGNESIUM LEVEL 1.8 MG/DL (1.8-2.4); POTASSIUM SERUM 3.7 MEQ/L (3.5-5.1); SODIUM LEVEL 141 MEQ/L (136-145); TOTAL PROTEIN 5.6 GM/DL (6.4-8.2)
[2019-07-14] MEDS: ONDANSETRON 4MG/2ML VIAL (J2405) IV PRN ×2 (05:13→19:39)
[2019-07-14] MEDS: GABAPENTIN 300 MG CAP PO SCH ×4 (09:00→20:41)
[2019-07-14] MEDS: ENOXAPARIN 40 MG/0.4 ML SYRINGE (J1650) SC SCH (09:00)
[2019-07-14] MEDS: METOPROLOL SUCC (TopROL XL) 50MG **XL** TAB PO SCH ×2 (09:00→20:41)
[2019-07-14 09:01] LABS: INR 1.11
[2019-07-14 09:02] LABS: FIBRINOGEN 489 MG/DL (221-452); PARTIAL THROMBOPLASTIN TIME 33.5 SECONDS (25.0-38.4)
[2019-07-14 09:36] LABS: D-DIMER QUANT > 4000 ng/ml (<500)
[2019-07-14] MEDS: FOLIC ACID 1 MG in NS 50 ML IV SCH (09:56)
[2019-07-14 10:25] LABS: HEMATOCRIT 28.8 % (36.0-47.0); HEMOGLOBIN 8.3 g/dl (12.0-15.5)
[2019-07-14] MEDS: THIAMINE HCL 200 MG/2 ML VIAL (J3411) IM SCH (10:43)
[2019-07-14 11:01] LABS: HEPATITIS B SURFACE ANTIGEN NEGATIVE (NEGATIVE)
[2019-07-14 11:28] LABS: HEPATITIS C VIRUS ABY INDEX 0.2 INDEX (<0.8)
[2019-07-14 11:29] LABS: HEPATITIS B CORE ANTIBODY IGM NEGATIVE (NEGATIVE)
[2019-07-14 11:31] LABS: HEPATITIS A ANTIBODY IGM NEGATIVE (NEGATIVE)
[2019-07-14] MEDS ORDERED: LIDOCAINE 2% INJ 100 MG/5 ML SDV (FOR ANES.) As Ordered ONE (16:05)
[2019-07-14] MEDS ORDERED: PROPOFOL 200 MG/20 ML VIAL As Ordered ONE (16:05)
[2019-07-14] MEDS ORDERED: fentaNYL 100 MCG/2 ML INJECTION (J3010) As Ordered ONE (16:07)
--- NOTE | 2019-07-14 16:47 | ROOR ---
Patient Name: Latasha Hernandez Procedure Date: 07/14/2019 3:36 PM Date of : 1985 Age: 34 Gender: Female Note Status: Finalized Procedure: Upper GI endoscopy Indications: Acute post hemorrhagic anemia vs Iron deficiency anemia Providers: Lino BUSH MD Referring MD: 1. No Referring Physician 1. No Referring Physician, Admin. Requesting Provider: Medicines: Monitored Anesthesia Care Complications: No immediate complications. Procedure: Pre-Anesthesia Assessment: - The heart rate, respiratory rate, oxygen saturations, blood pressure, adequacy of pulmonary ventilation, and response to care were monitored throughout the procedure. The Endoscope was introduced through the mouth, and advanced to the jejunum. The upper GI endoscopy was accomplished without difficulty. The patient tolerated the procedure well. Findings: The examined esophagus was normal. Evidence of a Jennifer-en-Y gastrojejunostomy was found. The gastrojejunal anastomosis was characterized by 2 small erosions and friable mucosa. This was biopsied with a cold forceps for histology and Helicobacter pylori testing. The exam of the stomach was otherwise normal. The examined jejunum was normal. Biopsies for histology were taken with a cold forceps for evaluation of celiac disease. Impression: - Normal esophagus. - Jennifer-en-Y gastrojejunostomy with gastrojejunal anastomosis characterized by two small erosions/shallow ulcerations and friable mucosa. Biopsied. - Stomach was otherwise normal. - Normal examined jejunum. Biopsied. Recommendation: - Use a proton pump inhibitor PO daily for 3 months. - Use sucralfate tablets 1 gram PO QID for 1 month. - Advance diet as tolerated and low fat diet. Lino Bush MD Lino BUSH MD 07/14/2019 4:47:15 PM Electronically signed by Lino BUSH MD Number of Addenda: 0 Note Initiated On: 07/14/2019 3:36 PM Estimated Blood Loss: Estimated blood loss: none.
[2019-07-14] MEDS ORDERED: LR 1,000 ML IV SCH (17:15)
[2019-07-14] MEDS ORDERED: ONDANSETRON 4MG/2ML VIAL (J2405) IV PRN (17:15)
[2019-07-14] MEDS ORDERED: fentaNYL 100 MCG/2 ML INJECTION (J3010) IV PRN (17:15)
[2019-07-14] MEDS: CitaloPRAM (CeleXA) 20 MG TAB PO SCH (17:51)
[2019-07-14] MEDS: amLODIPine 5 MG TAB PO SCH (17:52)
--- NOTE | 2019-07-14 18:02 | IPNPDOC ---
Text Note Date of Service The patient was seen on 07/14/19. NOTE Subjective: Patient continues to have vague abdominal pain, but less than ye sterday. Appetite improved Patient denies fever, chills, shortness of breath, palpitations or diarrhea. Patient denies dysuria. Objective: VITAL SIGNS: Please see below. GENERAL APPEARANCE: Morbidly obese female in moderate distress HEENT: Normocephalic atraumatic, mucous members moist and pink CARDIOVASCULAR: Rate and rhythm. No murmurs, rubs or gallops, no lower extremity edema, radial pulses intact LUNGS: Clear to auscultation bilaterally on room air ABDOMEN: Moderately tender in the left upper quadrant, nondistended, no rebound, Graf's sign is negative MUSCULOSKELETAL: Range of motion intact in all 4 extremities NEUROLOGICAL: Cranial 2-12 are grossly intact. Speech is not dysarthric PSYCHIATRIC: Alert and oriented to person, place and time, able to understand and follow commands ASSESSMENT: is a 34 yr old F w a PMH of Chronic hypertension, hx of gastric bypass, Anxiety, Depression and Fibro-myalgia who is admitted for acute pancreatitis. Abdominal ultrasound showed gallstones in the gallbladder without gallbladder wall thickening, pericholecystic fluid, or biliary dilatation. Diffuse fatty infiltration of the liver PLAN: Acute Pancreatitis Most likely secondary to alcohol abuse. Patient received supportive treatment with IV fluid and antiemetics Abdominal ultrasound showed gallstones in the gallbladder without gallbladder wall thickening, pericholecystic fluid, or biliary dilatation. Diffuse fatty infiltration of the liver. Magnetic resonance cholangiopancreatography (MRCP) has been completed and it was negative for obstructive stone Dr. Izaguirre did EGD today due to patient's anemia and it showed Jennifer-en-Y gastrojejunostomy with gastrojejunal anastomosis characterized by two small erosions/shallow ulcerations and friable mucosa PPI Gastric ulcer PPI for 3 months sucralfate tablets 1 gram PO QID Anemia Patient has chronic anemia at baseline secondary to gastric bypass EGD showed gastric ulcers Iron replacement 2. SIRS Most likely secondary to acute pancreatitis Patient denies dysuria, and I doubt that patient has infectious process. L eukocytosis most likely reactive. Patient does not have fever I DC antibiotic 3. Alcohol Abuse [facility] organic lab worker on board 4. Ovarian Lesion Plan: fu US of ovaries in the outpatient settings 5. Hemangioma of Liver Plan: f/u repeat CT of abdomen in 6 months 6. Fatty liver/ Alcoholic Liver Cirrhosis Follow-up with pamphlet distributor in the outpatient settings and PCP She will benefit from GI consult in the outpatient settings 7. Obesity -BMI 43.3 -s/p bariatric surgery - Business Support Manager consult 8. Bilirubinemia with transaminitis Patient has chronic EtOH abuse, however there is concern for autoimmune diseases We will check antinuclear antibody, antimitochondrial antibody, iron levels, ceruloplasmin, hepatitis studies and coagulation profile. VS,Fishbone, I+O VS, Fishbone, I+O Laboratory Tests 07/13/19 22:02 Red Blood Count 3.11 L, Mean Corpuscular Volume 88.7, Mean Corpuscular Hemoglobin 26.0 L, Mean Corpuscular Hemoglobin Concent 29.3 L, Red Cell Distribution Width 17.5 H 07/14/19 04:01 Red Blood Count 3.17 L, Mean Corpuscular Volume 89.6, Mean Corpuscular Hemoglobin 25.9 L, Mean Corpuscular Hemoglobin Concent 28.9 L, Red Cell Distribution Width 17.9 H 07/14/19 04:04 Calcium Level 8.0 L, Aspartate Amino Transf (AST/SGOT) 69 H, Alanine Aminotransferase (ALT/SGPT) 38, Alkaline Phosphatase 196 H, Total Bilirubin 2.3 H, Total Protein 5.6 L, Albumin 2.3 L 07/14/19 08:26 07/14/19 09:59 Vital Signs Date Time Temp Pulse Resp B/P (MAP) Pulse Ox O2 Delivery O2 Flow Rate FiO2 07/14/19 17:58 100 133/81 07/14/19 17:21 98.8 20 96 07/12/19 10:00 Room Air I&O- Last 24 Hours up to 6 AM 07/14/19 06:00 Intake Total 2580 ml Output Total 1600 ml Balance 980 ml PAULINO BRUNO DO Jul 14, 2019 18:02
[2019-07-14 18:21] LABS: HEMATOCRIT 29.8 % (36.0-47.0); HEMOGLOBIN 8.6 g/dl (12.0-15.5)
[2019-07-14] MEDS: SUCRALFATE 1 GM TAB PO SCH ×2 (18:42→20:41)
[2019-07-14] MEDS ORDERED: SUCRALFATE 1 GM TAB PO SCH (21:00)
[2019-07-14 23:54] LABS: HEMATOCRIT 29.3 % (36.0-47.0); HEMOGLOBIN 8.5 g/dl (12.0-15.5)
[2019-07-15] VITALS (9 sets, daily range): BP systolic 128–152; BP diastolic 70–90
[2019-07-15] MEDS: ONDANSETRON 4MG/2ML VIAL (J2405) IV PRN ×4 (00:20→17:06)
[2019-07-15] MEDS: MORPHINE 4 MG/ML 1ML VIAL/SYRINGE (J2270) IV PRN ×5 (00:20→21:44)
[2019-07-15] MEDS: NS 1,000 ML IV SCH (00:26)
[2019-07-15] MEDS: KETOROLAC 30 MG/ML VIAL (J1885) IV PRN ×3 (01:19→20:16)
[2019-07-15] MEDS: LORazepam 2 MG TAB PO PRN (03:07)
[2019-07-15 06:27] LABS: HEMATOCRIT 27.7 % (36.0-47.0)
[2019-07-15 06:56] LABS: ALBUMIN 2.2 GM/DL (3.2-5.2); ALT/SGPT 31 U/L (12-78); BILIRUBIN,TOTAL 1.5 MG/DL (0.2-1.0); BLOOD UREA NITROGEN 3 MG/DL (7-18); CALCIUM LEVEL 8.2 MG/DL (8.5-10.1); CARBON DIOXIDE LEVEL 23 MEQ/L (21-32); CHLORIDE LEVEL 109 MEQ/L (98-107); CREATININE FOR GFR 0.42 MG/DL (0.55-1.30); GLOMERULAR FILTRATION RATE > 60.0 (>60); GLUCOSE, FASTING 80 MG/DL (70-100); MAGNESIUM LEVEL 1.9 MG/DL (1.8-2.4); POTASSIUM SERUM 3.4 MEQ/L (3.5-5.1); SODIUM LEVEL 141 MEQ/L (136-145); TOTAL PROTEIN 5.5 GM/DL (6.4-8.2)
[2019-07-15] MEDS ORDERED: POTASSIUM CHLORIDE 10 MEQ SR TABLET PO ONE (08:00)
[2019-07-15] MEDS: ENOXAPARIN 40 MG/0.4 ML SYRINGE (J1650) SC SCH (08:28)
[2019-07-15] MEDS: OMEPRAZOLE 20 MG CAP PO SCH (08:29)
[2019-07-15] MEDS: GABAPENTIN 300 MG CAP PO SCH ×3 (08:29→20:11)
[2019-07-15] MEDS: THIAMINE HCL 200 MG/2 ML VIAL (J3411) IM SCH (08:29)
[2019-07-15] MEDS: CitaloPRAM (CeleXA) 20 MG TAB PO SCH (08:34)
[2019-07-15] MEDS: METOPROLOL SUCC (TopROL XL) 50MG **XL** TAB PO SCH ×2 (08:34→20:10)
[2019-07-15] MEDS: FOLIC ACID 1 MG in NS 50 ML IV SCH (08:35)
[2019-07-15] MEDS: SUCRALFATE 1 GM TAB PO SCH ×4 (08:37→20:09)
[2019-07-15 09:54] LABS: HEMATOCRIT 28.3 % (36.0-47.0); HEMOGLOBIN 8.1 g/dl (12.0-15.5)
[2019-07-15] MEDS: amLODIPine 5 MG TAB PO SCH (12:10)
--- NOTE | 2019-07-15 13:33 | IPNPDOC ---
Text Note Date of Service The patient was seen on 07/15/19. NOTE Subjective: Patient continues to have vague abdominal pain, she developed nausea when diet was changed low fat. Patient wants to discuss with surgeon possible cholecystectomy. Patient denies fever, chills, shortness of breath, palpitations or diarrhea. Patient denies dysuria. Objective: VITAL SIGNS: Please see below. GENERAL APPEARANCE: Morbidly obese female in moderate distress HEENT: Normocephalic atraumatic, mucous members moist and pink CARDIOVASCULAR: Rate and rhythm. No murmurs, rubs or gallops, no lower extremity edema, radial pulses intact LUNGS: Clear to auscultation bilaterally on room air ABDOMEN: Moderately tender in the left upper quadrant, nondistended, no rebound, Graf's sign is negative MUSCULOSKELETAL: Range of motion intact in all 4 extremities NEUROLOGICAL: Cranial 2-12 are grossly intact. Speech is not dysarthric PSYCHIATRIC: Alert and oriented to person, place and time, able to understand and follow commands ASSESSMENT: is a 34 yr old F w a PMH of Chronic hypertension, hx of gastric bypass, Anxiety, Depression and Fibro-myalgia who is admitted for acute pancreatitis. Abdominal ultrasound showed gallstones in the gallbladder without gallbladder wall thickening, pericholecystic fluid, or biliary dilatation. Diffuse fatty i nfiltration of the liver PLAN: Acute Pancreatitis Most likely secondary to alcohol abuse. Patient received supportive treatment with IV fluid and antiemetics Abdominal ultrasound showed gallstones in the gallbladder without gallbladder wall thickening, pericholecystic fluid, or biliary dilatation. Diffuse fatty infiltration of the liver. Magnetic resonance cholangiopancreatography (MRCP) has been completed and it was negative for obstructive stone Dr. Izaguirre did EGD due to patient's anemia and it showed Jennifer-en-Y gastrojejunostomy with gastrojejunal anastomosis characterized by two small erosions/shallow ulcerations and friable mucosa PPI Gastric ulcer PPI for 3 months sucralfate tablets 1 gram PO QID Anemia Patient has chronic iron deficient anemia at baseline secondary to Jennifer-en-Y gastrojejunostomy EGD showed gastric ulcers Iron replacement DIC panel is not relevant due to recent blood transfusion 2. SIRS Most likely secondary to acute pancreatitis Patient denies dysuria, and I doubt that patient has infectious process. Leukocytosis most likely reactive. Patient does not have fever I DC antibiotic 3. Alcohol Abuse [facility] general foundry worker on board 4. Ovarian Lesion Plan: fu US of ovaries in the outpatient settings 5. Hemangioma of Liver Plan: f/u repeat CT of abdomen in 6 months 6. Fatty liver/ Alcoholic Liver Cirrhosis Follow-up with nutritionists in the outpatient settings and PCP She will benefit from GI consult in the outpatient settings 7. Obesity -BMI 43.3 -s/p bariatric surgery - Fraternity House Cook consult 8. Bilirubinemia with transaminitis Patient has chronic EtOH abuse, however there is concern for autoimmune diseases antinuclear antibody, antimitochondrial antibody, ceruloplasmin pending Hepatitis panel negative Nausea I changed low fat diet to full liquid VS,Fishbone, I+O VS, Fishbone, I+O Laboratory Tests 07/14/19 18:12 07/14/19 23:41 07/15/19 06:02 Calcium Level 8.2 L, Aspartate Amino Transf (AST/SGOT) 52 H, Alanine Aminotransferase (ALT/SGPT) 31, Alkaline Phosphatase 187 H, Total Bilirubin 1.5 H, Total Protein 5.5 L, Albumin 2.2 L 07/15/19 09:36 Vital Signs Date Time Temp Pulse Resp B/P (MAP) Pulse Ox O2 Delivery O2 Flow Rate FiO2 07/15/19 12:41 17 07/15/19 12:10 88 128/77 07/15/19 10:00 100.1 94 07/12/19 10:00 Room Air I&O- Last 24 Hours up to 6 AM 07/15/19 06:00 Intake Total 4415 ml Output Total 1200 ml Balance 3215 ml PAULINO BRUNO DO Jul 15, 2019 13:33
[2019-07-15 21:19] LABS: ALBUMIN 2.4 GM/DL (3.2-5.2); BILIRUBIN,DIRECT 1.2 MG/DL (0.0-0.2); BILIRUBIN,TOTAL 1.8 MG/DL (0.2-1.0); TOTAL PROTEIN 5.9 GM/DL (6.4-8.2)
[2019-07-16] VITALS (7 sets, daily range): BP systolic 134–149; BP diastolic 85–93
[2019-07-16] MEDS: MORPHINE 4 MG/ML 1ML VIAL/SYRINGE (J2270) IV PRN (02:03)
[2019-07-16 07:02] LABS: ALBUMIN 2.4 GM/DL (3.2-5.2); ALT/SGPT 37 U/L (12-78); BILIRUBIN,TOTAL 1.4 MG/DL (0.2-1.0); BLOOD UREA NITROGEN 2 MG/DL (7-18); CALCIUM LEVEL 8.5 MG/DL (8.5-10.1); CARBON DIOXIDE LEVEL 23 MEQ/L (21-32); CHLORIDE LEVEL 111 MEQ/L (98-107); CREATININE FOR GFR 0.51 MG/DL (0.55-1.30); GLOMERULAR FILTRATION RATE > 60.0 (>60); GLUCOSE, FASTING 71 MG/DL (70-100); LIPASE 680 U/L (73-393); MAGNESIUM LEVEL 1.9 MG/DL (1.8-2.4); POTASSIUM SERUM 3.7 MEQ/L (3.5-5.1); SODIUM LEVEL 143 MEQ/L (136-145)
[2019-07-16] MEDS: THIAMINE HCL 200 MG/2 ML VIAL (J3411) IM SCH (08:31)
[2019-07-16] MEDS: ENOXAPARIN 40 MG/0.4 ML SYRINGE (J1650) SC SCH (08:32)
[2019-07-16] MEDS: SUCRALFATE 1 GM TAB PO SCH ×2 (08:33→12:08)
[2019-07-16] MEDS: METOPROLOL SUCC (TopROL XL) 50MG **XL** TAB PO SCH (08:34)
[2019-07-16] MEDS: OMEPRAZOLE 20 MG CAP PO SCH (08:35)
[2019-07-16] MEDS: GABAPENTIN 300 MG CAP PO SCH ×2 (08:35→16:02)
[2019-07-16] MEDS: CitaloPRAM (CeleXA) 20 MG TAB PO SCH (08:35)
[2019-07-16] MEDS: FOLIC ACID 1 MG in NS 50 ML IV SCH (08:35)
[2019-07-16] MEDS: ONDANSETRON 4MG/2ML VIAL (J2405) IV PRN (09:03)
[2019-07-16] MEDS: KETOROLAC 30 MG/ML VIAL (J1885) IV PRN (09:03)
[2019-07-16] MEDS: amLODIPine 5 MG TAB PO SCH (12:09)
--- NOTE | 2019-07-16 15:09 | CR ---
DATE OF CONSULTATION: 07/16/2019 REASON FOR CONSULTATION: Gallstones. HISTORY OF PRESENT ILLNESS: Patient is a 34-year-old female who presented to the emergency room on 07/11/2019 with severe pain, epigastric and on the left side of her abdomen radiating around to her left back. She attributed it to drinking a lot of alcohol. She had been drinking about an eight-pack of beer daily for a few months prior to that. That Wednesday, the day before she came into the hospital, was her last drink. On admission, her lipase was severely elevated. She had CT findings of pancreatitis, as well as peripancreatic phlegmon and inflammation, extending into the left side of her retroperitoneum. She has been in the hospital for a few days. She has undergone workup with Dr. Bush through gastroenterology (GI), who also diagnosed her with a marginal ulcer and she is currently on therapy for that. She is still having significant abdominal pains into her back and has requested a surgical evaluation for her gallstones. Prior to this attack, she has never had any symptoms. No problems with diet. She was drinking and smoking daily. Other than that, no other issues and no history of issues with her gallbladder. PAST MEDICAL HISTORY: 1. Hypertension. 2. Gastric bypass. 3. Anxiety. 4. Depression. 5. Fibromyalgia. PAST SURGICAL HISTORY: 1. Gastric bypass. 2. L5-S1 decompressive laminectomy. FAMILY HISTORY: Noncontributory. SOCIAL HISTORY: Was smoking a pack a day and drinking about eight-pack of alcohol daily. ALLERGIES: None. HOME MEDICATIONS: Please see medical reconciliation. REVIEW OF SYSTEMS: As per positives in history of present illness (HPI). PHYSICAL EXAMINATION: GENERAL: Alert and oriented times three. No acute stress. VITAL SIGNS: Temperature 99, pulse 80, respirations 19, blood pressure 138/85, pulse oximetry 94% room air. HEENT: Pupils equal round react to light and accommodation. HEART: S1, S2. Regular rate and rhythm. LUNGS: Clear to auscultation bilaterally. ABDOMEN: Soft. Tender to palpation in the left upper quadrant only. No rebounding, guarding or rigidity. EXTREMITIES: No clubbing, cyanosis or edema. LABORATORY DATA: White count was last 14 on , hemoglobin as of yesterday was 8.1. Lipase was 16,374 on admission, down to 680, with total bilirubin 1.4, AST 66, alkaline phosphatase 198. IMAGING STUDIES: CT abdomen and pelvis on admission showed severe fatty infiltration of the liver, enhancing liver lesion, likely hemangioma; inflammation, phlegmon and fluid along the posterior aspect of the pancreas surrounding the celiac artery and spinal muscular atrophy (SMA) extending along Gerota's fascia on the left, probably a result of pancreatitis; a 3 cm cystic structure of the right ovary with calcification, could be a teratoma. Pelvic ultrasound showed a small right ovarian cyst with calcification along the posterior wall. Maximal diameter is 1.4 cm. Gallbladder ultrasound showed gallstones. No wall thickening. No pericholecystic fluid and no biliary dilatation. Magnetic resonance cholangiopancreatography (MRCP) shows 2-3 small gallstones. No wall thickening. No edema. No biliary dilatation or evidence of choledocholithiasis. ASSESSMENT AND PLAN: The patient is a 34-year-old female with marginal ulcer and severe pancreatitis. She has asymptomatic cholelithiasis as well. At this point, I do not see any indication for cholecystectomy. Yes, she is high risk of needing her gallbladder out in the future; however, definitely not during this admission due to the inflammation in the area and there is no sign of any wall thickening or bile duct dilatation to suggest that she had any gallstone cause for her pancreatitis as well. Her symptoms are consistent with pancreatitis in the phlegmon as well as the ulcer with the left upper quadrant pain extending into the back. I recommend continue with treatment for the pancreatitis. Continue with a full liquid diet for now until her pain is more improved. Also continue with Carafate and the proton pump inhibitor (PPI) to assist with the ulcer healing. I explained to her very carefully that this is likely all a result of her alcoholism and smoking. She needs to get that under control. Otherwise, she is high risk for recurrent pancreatitis as well as perforated ulcer. She understands and will follow up with me as needed on an outpatient basis. I did explain to her the symptoms that are typical for gallbladder and gallstone disease. If she starts to have any problems with right upper quadrant pains that occurs after meals and goes away within an hour or two and becomes a repetitive process, then she will come to see me as well.
[2019-07-16] MEDS ORDERED: SUCR1TA PO (15:31)
[2019-07-16] MEDS ORDERED: OMEP40CA2 PO (15:31)
[2019-07-16] MEDS ORDERED: QC A650T3 PO (15:52)
--- NOTE | 2019-07-16 16:58 | DS.PDOC ---
Discharge Summary General Date of Admission Jul 12, 2019 at 14:11 Date of Discharge 07/16/19 Attending Physician: PAULINO BRUNO DO Discharge Summary PROCEDURES PERFORMED DURING STAY:EGD ADMITTING DIAGNOSES: Acute Pancreatitis Gastric ulcer Anemia SIRS Alcohol Abuse Ovarian Lesion Hemangioma of Liver Fatty liver/ Alcoholic Liver Cirrhosis Obesity Bilirubinemia with transaminitis Nausea DISCHARGE DIAGNOSES: Acute Pancreatitis Gastric ulcer Anemia SIRS Alcohol Abuse Ovarian Lesion Hemangioma of Liver Fatty liver/ Alcoholic Liver Cirrhosis Obesity Bilirubinemia with transaminitis Nausea COMPLICATIONS/CHIEF COMPLAINT: Acute Pancreatitis. HISTORY OF PRESENT ILLNESS: Ms. Hernandez is a 34-year-old female without any significant past medical history except for morbid obesity and alcoholism. She was in her usual state of health until approximately 2-3 days ago when she developed abdominal pain, nausea and darkening of her urine. She presented to the emergency room where further evaluation including a CT and ultrasound were performed. She was found to have pancreatitis on laboratory work and CAT scan and is noted to have multiple gallstones. She is significantly anemic and her hemoglobin has drifted downwards with hydration for her pancreatitis. She denies any melena, hematochezia, hematemesis, or any tarry black stools. She denies any fevers or chills. HOSPITAL COURSE: During hospital stay patient the following issues were addressed Acute Pancreatitis Most likely secondary to alcohol abuse. Patient received supportive treatment with IV fluid and antiemetics Abdominal ultrasound showed gallstones in the gallbladder without gallbladder wall thickening, pericholecystic fluid, or biliary dilatation. Diffuse fatty infiltration of the liver. Magnetic resonance cholangiopancreatography (MRCP) has been completed and it was negative for obstructive stone Dr. Izaguirre did EGD due to patient's anemia and it showed Jennifer-en-Y gastrojejunostomy with gastrojejunal anastomosis characterized by two small erosions/shallow ulcerations and friable mucosa PPI Gastric ulcer PPI for 3 months sucralfate tablets 1 gram PO QID Anemia Patient has chronic iron deficient anemia at baseline secondary to Jennifer-en-Y gastrojejunostomy EGD showed gastric ulcers Iron replacement DIC panel is not relevant due to recent blood transfusion SIRS Most likely secondary to acute pancreatitis Patient denies dysuria, and I doubt that patient has infectious process. Leuko cytosis most likely reactive. Patient did not have fever I DC antibiotic 3. 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 Ovarian Lesion Plan: fu US of ovaries in the outpatient settings 5. Hemangioma of Liver Plan: f/u repeat CT of abdomen in 6 months 6. Fatty liver/ Alcoholic Liver Cirrhosis Follow-up with molder foam rubber in the outpatient settings and PCP She will benefit from GI consult in the outpatient settings 7. 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 Bilirubinemia with transaminitis Patient has chronic EtOH abuse, however there is concern for autoimmune diseases antinuclear antibody, antimitochondrial antibody, ceruloplasmin pending Hepatitis panel negative Nausea Recommended soft diet for next 3 days DISCHARGE MEDICATIONS: Please see below. ALLERGIES: Please see below. PHYSICAL EXAMINATION ON DISCHARGE: GENERAL APPEARANCE: Morbidly obese female in moderate distress HEENT: Normocephalic atraumatic, mucous members moist and pink CARDIOVASCULAR: Rate and rhythm. No murmurs, rubs or gallops, no lower extremity edema, radial pulses intact LUNGS: Clear to auscultation bilaterally on room air ABDOMEN: Moderately tender in the left upper quadrant, nondistended, no rebound, Graf's sign is negative MUSCULOSKELETAL: Range of motion intact in all 4 extremities NEUROLOGICAL: Cranial 2-12 are grossly intact. Speech is not dysarthric PSYCHIATRIC: Alert and oriented to person, place and time, able to understand and follow commands LABORATORY DATA: Please see below. IMAGIN07/11/2019 CT abdomen and pelvis impression: 1. Severe fatty infiltration of the liver. 2. Enhancing liver lesion, probably hemangioma, recommend followup CT in six months or obtaining old examinations for comparison. 3. Inflammation, phlegmon and fluid along the posterior aspect of the pancreas and surrounding the celiac artery and SMA. This extends along the Gerota's fascia on the left and probably the result of changes of pancreatitis. 4. A 3 cm cystic structure in the right ovary with calcification, could be a teratoma. Recommend correlation with ultrasound and also obtaining old examinations for comparison. Liver ultrasound dated 07/12/2019 impression: 1. Gallstones in the gallbladder without gallbladder wall thickness, pericholecystic fluid or biliary dilation. 2. Diffuse fatty infiltration of the liver. 3. Hypoechoic area anteriorly has a maximum diameter of 2.6 cm, probably representing an area of stair parenchyma with no mass seen on the CT of 07/11/2019. MRCP dated 07/13/2019 impression: 1. Two or three subcentimeter gallstones in the gallbladder. 2. No gallbladder wall edema. 3. No biliary dilation or evidence of choledocholithiasis. 4. Findings compatible with pancreatitis. 5. Hyperintense nodule in the right lobe of the liver approximately 2 cm in diameter is compatible with a hemangioma. 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 DISCHARGE INSTRUCTIONS: 1. Soft diet for next 3 days ITEMS TO FOLLOWUP ON ON OUTPATIENT: 1. Follow-up with PCP in one week DISCHARGE CONDITION: Stable TIME SPENT ON DISCHARGE: Greater than 30 minutes. Vital Signs/I&Os Vital Signs Date Time Temp Pulse Resp B/P (MAP) Pulse Ox O2 Delivery O2 Flow Rate FiO2 07/16/19 14:00 99.3 105 19 137/93 (108) 98 07/12/19 10:00 Room Air I&O- Last 24 Hours up to 6 AM 07/16/19 06:00 Intake Total 3720.2 ml Output Total 4175 ml Balance -454.8 ml Laboratory Data Labs 24H Laboratory Tests 2 07/16/19 05:45: Anion Gap 9, Glomerular Filtration Rate > 60.0, Blood Urea Nitrogen 2L, Creatinine 0.51L, Sodium Level 143, Potassium Level 3.7, Chloride Level 111H, Carbon Dioxide Level 23, Calcium Level 8.5, Aspartate Amino Transf (AST/SGOT) 66H, Alanine Aminotransferase (ALT/SGPT) 37, Alkaline Phosphatase 198H, Total Bilirubin 1.4H, Total Protein 6.0L, Albumin 2.4L, Magnesium Level 1.9, Albumin/Globulin Ratio 0.67L, Lipase 680H CBC/BMP Laboratory Tests 07/16/19 05:45 Calcium Level 8.5, Aspartate Amino Transf (AST/SGOT) 66 H, Alanine Am inotransferase (ALT/SGPT) 37, Alkaline Phosphatase 198 H, Total Bilirubin 1.4 H, Total Protein 6.0 L, Albumin 2.4 L Microbiology Microbiology 07/15/19 Stool Occult Blood (GINGER) - Final, Complete 07/14/19 Stool Occult Blood (GINGER) - Final, Complete 07/12/19 Blood Culture - Preliminary, Resulted No Growth after 72 hours. All specime... 07/11/19 Urine Culture - Final, Complete Discharge Medications Scheduled Amlodipine Besylate (Amlodipine Besylate) 5 Mg Tablet, 5 MG PO DAILY, (Reported) NOON Citalopram Hydrobromide (Citalopram HBr) 20 Mg Tablet, 20 MG PO DAILY, (Reported) Gabapentin (Gabapentin) 300 Mg Capsule, 300 MG PO TID, (Reported) Metoprolol Succinate (Metoprolol Succinate) 50 Mg Tab.er.24h, 50 MG PO BID, (Reported) Omeprazole (Omeprazole) 40 Mg Capsule.dr, 40 MG PO DAILY Take 20 minutes before food Sucralfate (Sucralfate) 1 Gm Tablet, 1 GM PO QID Scheduled PRN Acetaminophen (Acetaminophen 8 Hour) 650 Mg Tablet.er, 650 MG PO Q6HP PRN for PAIN OR FEVER Allergies Coded Allergies: No Known Allergies (Unverified , 07/11/19) PAULINO BRUNO DO Jul 16, 2019 16:58
[2019-07-18 00:14] LABS: ANA (HEP2) Negative (.); ANCA-ATYPICAL <1:20 titer (Neg:<1:20); ANTI-MITOCHONDRIAL ANTIBODY <20.0 Units (0.0-20.0); CERULOPLASMIN 34.6 mg/dL (19.0-39.0); CYTOPLASMIC NEUTROP AB ANCA-C <1:20 titer (Neg:<1:20); LIVER-KIDNEY MICROSOMAL ABY <20.1 Units (0.0-20.0); PERINUCLEAR AB ANCA-P <1:20 titer (Neg:<1:20)
== END 2019-07-16 16:24 | disposition home or self-care (01) | DRG 439 ==
LOC: M ED 17:37 → M ED INP 17:38 → OBSVTOIN 07-12 14:11 → M PCU 07-12 16:59 → M MSPAV 07-13 14:15
PROVIDERS: ADMIT Internal Medicine; ATTEND Internal Medicine
PROC: 0DB98ZX Excision of Duodenum, Via Natural or Artificial Opening Endoscopic, Diagnostic (ICD-10-PCS; principal; 2019-07-14 15:00)
DX: K85.20 Alcohol induced acute pancreatitis without necrosis or infection (principal); Z68.41 Body mass index [BMI] 40.0-44.9, adult; D62 Acute posthemorrhagic anemia; E66.01 Morbid (severe) obesity due to excess calories; K70.30 Alcoholic cirrhosis of liver without ascites; K70.0 Alcoholic fatty liver; D18.09 Hemangioma of other sites; K80.20 Calculus of gallbladder without cholecystitis without obstruction; N83.201 Unspecified ovarian cyst, right side; I10 Essential (primary) hypertension; F41.9 Anxiety disorder, unspecified; F32.9 Major depressive disorder, single episode, unspecified; M79.7 Fibromyalgia; F17.200 Nicotine dependence, unspecified, uncomplicated; Z79.899 Other long term (current) drug therapy; Z98.84 Bariatric surgery status; R11.0 Nausea

== ENCOUNTER → 2020-12-26 | Outpatient (REF) | payer MEDICARE ==
[~2020-12-26] MED LIST: AMLO1TAB24 PO; CITA20TA6 PO; GABA-282 PO; METO1TAB7 PO; OMEP40CA97 PO; QC A650T3 PO; SUCR1TA PO
[2020-12-26 16:33] LABS: BASO % 0.5 % (0.0-1.0); EOS # 0.1 10^3/uL (0.0-0.5); EOS % 0.9 % (0.0-3.0); HEMATOCRIT 53.2 % (36.0-47.0); HEMOGLOBIN 18.3 g/dl (12.0-15.5); LYMPH # 2.1 10^3/uL (1.5-5.0); LYMPH % 26.4 % (24.0-44.0); MEAN CORPUSCULAR HEMOGLOBIN 30.8 pg (27.0-33.0); MEAN CORPUSCULAR HGB CONC 34.4 g/dl (32.0-36.5); MEAN CORPUSCULAR VOLUME 89.6 fl (80.0-96.0); MONO # 0.7 10^3/uL (0.0-0.8); MONO % 8.5 % (2.0-8.0); NEUTROPHILS % 63.2 % (36.0-66.0); PLATELET COUNT, AUTOMATED 145 10^3/uL (150-450); RED BLOOD COUNT 5.94 10^6/uL (4.00-5.40); WHITE BLOOD COUNT 7.9 10^3/uL (4.0-10.0)
[2020-12-26 16:53] LABS: ALBUMIN 3.9 GM/DL (3.2-5.2); ALT/SGPT 89 U/L (12-78); BILIRUBIN,TOTAL 1.1 MG/DL (0.2-1.0); BLOOD UREA NITROGEN 7 MG/DL (7-18); CALCIUM LEVEL 9.5 MG/DL (8.5-10.1); CARBON DIOXIDE LEVEL 30 MEQ/L (21-32); CHLORIDE LEVEL 102 MEQ/L (98-107); CHOLESTEROL LEVEL 162 MG/DL (<200); CHOLESTEROL RISK RATIO 1.687 (<5); CREATININE FOR GFR 0.59 MG/DL (0.55-1.30); GLOMERULAR FILTRATION RATE > 60.0 (>60); GLUCOSE, FASTING 103 MG/DL (70-100); HDL CHOLESTEROL 96 MG/DL (>40); IRON (FE) 133 UG/DL (50-170); LDL CHOLESTEROL 50 MG/DL (<100); NON-HDL-C 66 MG/DL; PERCENT SATURATION 39.5 % (13.2-45.0); POTASSIUM SERUM 3.2 MEQ/L (3.5-5.1); SODIUM LEVEL 137 MEQ/L (136-145); TOTAL IRON BINDING CAPACITY 337 UG/DL (250-450); TOTAL PROTEIN 7.7 GM/DL (6.4-8.2); TRIGLYCERIDES LEVEL 82 MG/DL (<150)
[2020-12-26 17:01] LABS: TOTAL 25(OH) VITAMIN D 22.5 NG/ML (30.0-100.0); VITAMIN B12 LEVEL 466 PG/ML (247-911)
[2020-12-26 19:56] LABS: HEMATOCRIT 53.2 % (36.0-47.0)
== END ==
LOC: M SFHCADAM 15:00
PROVIDERS: ATTEND Family Medicine
DX: Z00.00 Encounter for general adult medical examination without abnormal findings (principal); Z98.84 Bariatric surgery status; D50.9 Iron deficiency anemia, unspecified; E78.00 Pure hypercholesterolemia, unspecified

== ENCOUNTER → 2021-02-24 | Outpatient (CLI) | payer MEDICARE ==
--- NOTE | 2021-02-24 10:02 | REP ---
INDICATION: OTHER SPECIFIED ABNORMAL FINDINGS OF BLOOD CHEMISTRY. COMPARISON: 07/12/2019. TECHNIQUE: Real-time sonographic evaluation of right upper quadrant performed. FINDINGS: There is moderate sludge in the gallbladder with no stones identified. There is no gallbladder wall thickening or pericholecystic fluid.. There is no intrahepatic or extrahepatic biliary dilatation, common bile duct measures 5 mm in maximum diameter. There is diffuse heterogeneous increased echotexture of the liver compatible with diffuse fibrofatty infiltration. The pancreas demonstrates homogeneous echotexture with no gross mass. The right kidney demonstrates no hydronephrosis, with a normal size of 12.3 cm in length. No free fluid is seen. IMPRESSION: Moderate sludge in the gallbladder with no evidence of stones. No gallbladder wall thickening, pericholecystic fluid or biliary dilatation. Diffuse fibrofatty infiltration of the liver. No liver mass is visualized. <Electronically signed by Kelvin Bagley > 02/24/21 [id number]
== END ==
LOC: M RAD 08:15
PROVIDERS: ATTEND Family Medicine
DX: R79.89 Other specified abnormal findings of blood chemistry (principal)

== ENCOUNTER → 2021-04-09 | Outpatient (REF) | payer MEDICARE ==
[~2021-04-09] MED LIST changes: +OMEP40CA4 PO; -OMEP40CA97 PO
== END ==
LOC: M SFHCADAM 13:48
PROVIDERS: ATTEND Family Medicine
DX: K76.0 Fatty (change of) liver, not elsewhere classified (principal)

== ENCOUNTER → 2021-06-12 | Outpatient (REF) | payer MEDICARE | LOC: M LAB REF 16:28 | PROVIDERS: ATTEND Surgery | DX: L98.0 Pyogenic granuloma (principal) ==

== ENCOUNTER → 2021-06-27 | Outpatient (REF) | payer MEDICARE ==
[~2021-06-27] MED LIST changes: +IBUP-1022 PO
== END ==
LOC: M SFHCADAM 15:50
PROVIDERS: ATTEND Family Medicine
DX: R30.0 Dysuria (principal)
CPT/HCPCS: 87088; 87186; G0463

== ENCOUNTER 2021-07-02 16:00 | Emergency (ER) | payer MEDICARE ==
[~2021-07-02] VITALS: Ht 167.6 cm; Wt 90.3 kg
[~2021-07-02 16:00] MED LIST changes: -IBUP-1022 PO
[2021-07-02] MEDS ORDERED: IBUP-1022 PO (16:06)
[2021-07-02] MEDS ORDERED: ONDANSETRON 4MG/2ML VIAL IV ONE (17:40)
[2021-07-02] MEDS ORDERED: MORPHINE 2 MG/ML 1ML VIAL (J2270) IV ONE (17:40)
[2021-07-02 19:51] LABS: BASO % 0.3 % (0.0-1.0); EOS # 0.2 10^3/uL (0.0-0.5); EOS % 1.5 % (0.0-3.0); HEMATOCRIT 42.5 % (36.0-47.0); HEMOGLOBIN 14.6 g/dl (12.0-15.5); LYMPH # 2.1 10^3/uL (1.5-5.0); LYMPH % 17.7 % (24.0-44.0); MEAN CORPUSCULAR HGB CONC 34.4 g/dl (32.0-36.5); MEAN CORPUSCULAR VOLUME 107.6 fl (80.0-96.0); MONO % 8.4 % (2.0-8.0); NEUTROPHILS # 8.6 10^3/uL (1.5-8.5); NEUTROPHILS % 71.4 % (36.0-66.0); PLATELET COUNT, AUTOMATED 234 10^3/uL (150-450); RED BLOOD COUNT 3.95 10^6/uL (4.00-5.40); WHITE BLOOD COUNT 12.1 10^3/uL (4.0-10.0)
[2021-07-02 20:23] LABS: ALBUMIN 2.9 GM/DL (3.2-5.2); ALT/SGPT 37 U/L (12-78); AMYLASE 72 U/L (25-115); BILIRUBIN,DIRECT 1.4 MG/DL (0.0-0.2); BILIRUBIN,TOTAL 2.5 MG/DL (0.2-1.0); BLOOD UREA NITROGEN 9 MG/DL (7-18); CALCIUM LEVEL 8.8 MG/DL (8.5-10.1); CARBON DIOXIDE LEVEL 27 MEQ/L (21-32); CHLORIDE LEVEL 104 MEQ/L (98-107); CREATININE FOR GFR 0.39 MG/DL (0.55-1.30); GLOMERULAR FILTRATION RATE > 60.0 (>60); GLUCOSE, FASTING 66 MG/DL (70-100); LIPASE 417 U/L (73-393); POTASSIUM SERUM 3.6 MEQ/L (3.5-5.1); SODIUM LEVEL 137 MEQ/L (136-145); TOTAL PROTEIN 6.9 GM/DL (6.4-8.2)
[2021-07-02] MEDS ORDERED: ISOVUE-370 76% 100ML VIAL As Ordered ONE (21:51)
--- NOTE | 2021-07-02 23:12 | REPVR ---
PROCEDURE INFORMATION: Exam: CT Abdomen And Pelvis With Contrast Exam date and time: 07/02/2021 10:03 PM Age: 36 years old Clinical indication: Abdominal pain; Localized; Right upper quadrant (ruq); Additional info: Ruq, rlq, pain guarding elevated lft's and lipase TECHNIQUE: Imaging protocol: Computed tomography of the abdomen and pelvis with contrast. Radiation optimization: All CT scans at this facility use at least one of these dose optimization techniques: automated exposure control; mA and/or kV adjustment per patient size (includes targeted exams where dose is matched to clinical indication); or iterative reconstruction. Contrast material: ISOVUE 370; Contrast volume: 100 ml; Contrast route: INTRAVENOUS (IV); COMPARISON: MRI ABDOMEN WITHOUT CONTRAST 07/13/2019 2:21 PM FINDINGS: Liver: There is a diffuse decrease in hepatic parenchymal density, consistent with fatty infiltration. A 2.0 cm hepatic cyst is stable. Gallbladder and bile ducts: Cholelithiasis is noted. The gallbladder wall is enhancing. Pancreas: There is no pancreatic ductal dilatation. Margins of the pancreatic head are indistinct, and the pancreatic head exhibits mild heterogeneity. There is peripancreatic edema. Findings indicate pancreatitis. A pancreatic parenchymal lesion cannot be excluded. Spleen: The spleen is enlarged. Adrenal glands: The adrenal glands are normal. Kidneys and ureters: The kidneys are normal. Stomach and bowel: Postsurgical changes of the stomach. Mural thickening is seen at the hepatic flexure of the colon, likely reflecting reactive inflammatory changes. There is no bowel obstruction. Appendix: The appendix is not clearly visualized. Correlate with surgical history. There is no focal inflammatory process in the right lower quadrant to indicate acute appendicitis. Intraperitoneal space: There is a moderate amount of free fluid adjacent to the liver, in the pelvis and both pericolic gutters, greater on the right. No free intraperitoneal air is seen. Vasculature: The vasculature is normal. There is no evidence of an abdominal aortic aneurysm. Lymph nodes: Unremarkable. No enlarged lymph nodes. Urinary bladder: The bladder is normal. Reproductive: Unremarkable as visualized. Bones/joints: Old healed rib fractures are seen bilaterally. Spinal degenerative changes are noted. Soft tissues: At the medial margin of the liver, there is a large complex, heterogeneously hypodense collection versus mass which extends from the level of the diaphragm superiorly to the right pericolic gutter inferiorly. The presumed collection is somewhat lobular and elongated, running along the medial margin of the liver, abutting the esophagus, gallbladder, pancreas, and hepatic flexure, causing indentations along the medial liver margin. This appears to be extrahepatic. Given the provided clinical history, primary considerations would be pancreatic pseudocyst or abscess. There the superior most portion of the collection/lesion measures approximately 9 x 6 cm in the axial plane. More inferiorly, the collection measures approximately 6 x 8 cm in the axial plane. In the long axis, the overall collection measures approximately 22 cm. IMPRESSION: 1. Large complex, heterogeneously hypodense collection extending along the medial margin of the liver, as described above. Pancreatic pseudocyst or abscess would be the primary considerations, given the provided clinical history. 2. Moderate amount of free fluid in the abdomen. No free air. 3. Heterogeneous, ill-defined appearance of the pancreatic head with peripancreatic edema suggesting acute pancreatitis. Underlying small pancreatic mass cannot be excluded. 4. Mural thickening along the hepatic flexure of the colon, likely reactive inflammatory. 5. Mild splenomegaly. 6. Stable hepatic cyst. Electronically signed by: Jayne Cantrell On 07/02/2021 23:12:02 PM
[2021-07-03] MEDS ORDERED: MORPHINE 2 MG/ML 1ML VIAL (J2270) IV ONE
[2021-07-03 01:25] LABS: RSV AMPLIFICATION NEGATIVE (NEGATIVE)
[2021-07-03] MEDS ORDERED: MORPHINE 4 MG/ML 1ML VIAL/SYRINGE (J2270) IV ONE ×2 (02:30→06:40)
[2021-07-03 07:04] VITALS: BP 115/78
== END 2021-07-03 07:01 | disposition short-term general hospital (02) ==
LOC: M ED 16:00
DX: K85.90 Acute pancreatitis without necrosis or infection, unspecified (principal); K80.20 Calculus of gallbladder without cholecystitis without obstruction; K76.89 Other specified diseases of liver; R16.1 Splenomegaly, not elsewhere classified; R18.8 Other ascites; R94.5 Abnormal results of liver function studies; I10 Essential (primary) hypertension; F17.200 Nicotine dependence, unspecified, uncomplicated; Z98.51 Tubal ligation status; Z79.899 Other long term (current) drug therapy
CPT/HCPCS: 74177; 80047; 80048; 80076; 81001; 82150; 83690; 84484; 84702; 85025; 87086; 87631; 96374; 96375; 96376; 99284; G0463; J2270; J2405; Q9967; U0003

== ENCOUNTER → 2021-07-02 | Outpatient (CLI) | payer MEDICARE | LOC: M LABSMTC 09:52 | PROVIDERS: ATTEND Anesthesiology | DX: Z11.52 Encounter for screening for COVID-19 (principal); Z20.822 Contact with and (suspected) exposure to COVID-19 ==

== ENCOUNTER → 2021-07-02 | Outpatient (REF) | payer MEDICARE | LOC: M SFHCADAM 16:51 | PROVIDERS: ATTEND Family Medicine | DX: R30.0 Dysuria (principal) ==

== ENCOUNTER → 2021-07-02 | Outpatient (REF) | payer MEDICARE | LOC: M SFHCADAM 14:44 | PROVIDERS: ATTEND Family Medicine | DX: R30.0 Dysuria (principal) ==

== ENCOUNTER → 2021-07-22 | Outpatient (CLI) | payer MEDICARE ==
[~2021-07-22] MED LIST changes: +IBUP-1022 PO; +ISOVUE-370 76% 100ML VIAL As Ordered ONE
--- NOTE | 2021-07-22 09:01 | REP ---
INDICATION: PANCREATIC CYST W/ DRAIN PLACEMENT W/ PANCREATSIS. COMPARISON: CT examinations dated 07/02/2021, 07/11/2019 TECHNIQUE: Axial contrast-enhanced images from the lung bases to the pubic symphysis using 100 cc Isovue 370 intravenous contrast material. Coronal and sagittal reformations obtained. This CT examination was performed using the following dose reduction techniques: Automated exposure control, adjustment of mA and/or kv according to the patient's size, and the use of iterative reconstruction technique. FINDINGS: A pigtail catheter is identified within a complex collection located in the gallbladder fossa which is considerably decreased in size when compared with prior examination. The second, now larger collection which has identified inseparable from the head of the pancreas and distal aspect of the stomach currently measures greater than 8.6 x 6.0 x 6.9 cm and is relatively unchanged in appearance/size. The gallbladder is identified with small gallstones and layering sludge, but no specific gallbladder wall thickening to suggest acute cholecystitis. Small amount of inflammatory stranding and fluid along the right pericolic gutter and right anterior pararenal space appears slightly improved. Liver also demonstrates a stable hypodense area along the periphery of the anterior segment right lobe unchanged in appearance. Mild splenomegaly remains stable. Pancreas appears relatively normal/stable although small cystic changes in the head/uncinate process are again identified and may represent focal areas of ductal dilatation. Bilateral adrenal glands and kidneys are normal. Small and large bowel without obstruction or obvious acute inflammatory process. However, a subtle secondary reactive colitis involving the ascending colon in the region of the above-mentioned inflammatory changes cannot be excluded. There is evidence for prior gastric bypass surgery. Pelvis demonstrates normal bladder and uterus along with bilateral ovarian cystic changes likely physiologic. Small amount of ascites extends into the posterior cul-de-sac and is nonspecific. Abdominal aorta without aneurysm or dissection. No free air. Presumed mild reactive right upper quadrant and retroperitoneal lymph nodes noted. Musculoskeletal structures demonstrate old healed rib fractures without acute process. IMPRESSION: 1. Complex findings in the right upper quadrant as described above demonstrate mild improvement. 2. Further nonacute findings as noted. <Electronically signed by Isael Mckee > 07/22/21 [id number]
== END ==
LOC: M RAD 08:08
PROVIDERS: ATTEND Student in an Organized Health Care Education/Training Program
DX: K86.3 Pseudocyst of pancreas (principal)
CPT/HCPCS: 74177; Q9967

== ENCOUNTER → 2021-08-08 | Outpatient (CLI) | payer MEDICARE ==
[~2021-08-08] MED LIST changes: +GASTROGRAFIN SOLUTION 30ML (Q9963) As Ordered ONE; -ISOVUE-370 76% 100ML VIAL As Ordered ONE
--- NOTE | 2021-08-08 16:21 | REP ---
INDICATION: PANCREATIC SUDOCYST. COMPARISON: Multiple the latest 07/22/2021 TECHNIQUE: Standard helical technique after the intravenous administration of 100 cc Isovue 370. Oral bowel preparatory contrast was administered prior to the exam. FINDINGS: The lung bases are clear and unchanged. The liver and spleen are unchanged. Note is again made of cholelithiasis. There is fluid surrounding the gallbladder. There is a surgical drainage tube in the right upper quadrant status quo. The large 6 x 8.6 cm sized mid abdominal fluid collection seen on the prior exam has significantly decreased in size today measuring 3.1 x 4.1 cm in the same planes. The pancreas is essentially unchanged. Peripancreatic fatty infiltration is again seen around the pancreatic head region status quo. No pancreatic ductal dilatation or enhancing mass has developed. The thickening of the right lateral conal fascial plane seen on the prior exam has decreased. Mild persistent thickening of Zuckerekandl fascia on the right persist. The small amount of fluid seen previously in the posterior pararenal space is unchanged. There is no significant change in appearance of the bowel loops. There is no intestinal obstruction. There is no evidence of new free intraperitoneal air. There is a small amount of free fluid in the pelvis which has decreased from the prior exam. In the left adnexa a 5.5 cm sized low-density structure has developed. This was previously 1.5 cm and is likely a large ovarian cyst. A smaller right ovarian cyst is again noted. Bone window technique throughout the examination shows no significant change in appearance of the osseous structures. IMPRESSION: 1. Significant improvement in the fluid collection seen previously in the abdomen as described above. 2. Decreased amount of free fluid in the abdomen and decreased amount of reactive thickening of multiple fascial planes as described above. 3. Bilateral ovarian cysts as described above. 4. Other chronic changes as described above. <Electronically signed by Evin Topete > 08/08/21 [id number]
== END ==
LOC: M RAD 13:54
PROVIDERS: ATTEND Family Medicine
DX: K86.3 Pseudocyst of pancreas (principal); N83.201 Unspecified ovarian cyst, right side; N83.202 Unspecified ovarian cyst, left side
CPT/HCPCS: 74177; Q9963

== ENCOUNTER 2022-04-07 12:17 | Inpatient (IN) | payer MEDICARE ==
[~2022-04-07] VITALS: Ht 167.6 cm; Wt 84.5 kg
[~2022-04-07 12:17] MED LIST changes: -GASTROGRAFIN SOLUTION 30ML (Q9963) As Ordered ONE
[2022-04-07] MEDS ORDERED: LEXA1TAB PO (12:29)
[2022-04-07] MEDS ORDERED: KETOROLAC 30 MG/ML 1ML VIAL IV ONE (13:55)
[2022-04-07] MEDS ORDERED: ONDANSETRON 4MG/2ML VIAL IV ONE (13:55)
[2022-04-07] MEDS ORDERED: NS 1,000 ML IV ONE (13:55)
[2022-04-07 14:05] LABS: BASO % 0.3 % (0.0-1.0); EOS % 0.6 % (0.0-3.0); HEMATOCRIT 49.3 % (36.0-47.0); HEMOGLOBIN 17.4 g/dl (12.0-15.5); LYMPH # 0.6 10^3/uL (1.5-5.0); LYMPH % 8.9 % (24.0-44.0); MEAN CORPUSCULAR HEMOGLOBIN 33.1 pg (27.0-33.0); MEAN CORPUSCULAR HGB CONC 35.3 g/dl (32.0-36.5); MEAN CORPUSCULAR VOLUME 93.9 fl (80.0-96.0); MONO # 0.6 10^3/uL (0.0-0.8); MONO % 8.7 % (2.0-8.0); NEUTROPHILS # 5.9 10^3/uL (1.5-8.5); NEUTROPHILS % 81.2 % (36.0-66.0); PLATELET COUNT, AUTOMATED 181 10^3/uL (150-450); RED BLOOD COUNT 5.25 10^6/uL (4.00-5.40); WHITE BLOOD COUNT 7.2 10^3/uL (4.0-10.0)
[2022-04-07 14:24] LABS: ALBUMIN 4.2 GM/DL (3.2-5.2); ALT/SGPT 191 U/L (12-78); BILIRUBIN,DIRECT 0.4 MG/DL (0.0-0.2); BILIRUBIN,TOTAL 0.9 MG/DL (0.2-1.0); ETHYL ALCOHOL (ETHANOL) < 0.003 % (0.000-0.010); LIPASE 1713 U/L (73-393); MAGNESIUM LEVEL 1.8 MG/DL (1.8-2.4)
[2022-04-07] MEDS ORDERED: ISOVUE-370 76% 100ML VIAL As Ordered ONE (14:46)
[2022-04-07] MEDS ORDERED: MORPHINE 4 MG/ML 1ML VIAL/SYRINGE IV ONE (15:30)
[2022-04-07] MEDS ORDERED: LR 1,000 ML IV ONE (15:50)
[2022-04-07] MEDS ORDERED: amLODIPine 5 MG TAB PO ONE (16:15)
[2022-04-07 16:29] LABS: RSV AMPLIFICATION NEGATIVE (NEGATIVE)
[2022-04-07 16:42] LABS: TRIGLYCERIDES LEVEL 53 MG/DL (<150)
[2022-04-07] MEDS ORDERED: IBUP1TAB7 PO (16:47)
[2022-04-07] MEDS ORDERED: QC A650T3 PO (16:47)
[2022-04-07] MEDS ORDERED: GABA600T4 PO (16:47)
[2022-04-07] MEDS ORDERED: HOME MED LIST COMPLETE! XX SCH (16:50)
[2022-04-07] MEDS: LR 1,000 ML IV SCH ×2 (16:52→22:58)
[2022-04-07] MEDS: THIAMINE 100 MG TAB PO SCH (18:40)
[2022-04-07] MEDS: ONDANSETRON 4MG/2ML VIAL IV PRN ×2 (18:45→21:17)
[2022-04-07] MEDS: MORPHINE 2 MG/ML 1ML VIAL IV PRN (20:48)
[2022-04-07 21:00] VITALS: BP_SYST 157; BP_SYST 169; BP_DIAS 100; BP_DIAS 90
[2022-04-07] MEDS: LORazepam 2 MG TAB PO PRN (21:17)
[2022-04-07 22:00] VITALS: BP 148/66
[2022-04-08] VITALS (10 sets, daily range): BP systolic 133–149; BP diastolic 61–96
[2022-04-08] MEDS: MORPHINE 4 MG/ML 1ML VIAL/SYRINGE IV PRN ×3 (01:18→22:02)
[2022-04-08 05:24] LABS: HEMATOCRIT 42.8 % (36.0-47.0); MEAN CORPUSCULAR HEMOGLOBIN 32.3 pg (27.0-33.0); MEAN CORPUSCULAR HGB CONC 34.3 g/dl (32.0-36.5); MEAN CORPUSCULAR VOLUME 94.1 fl (80.0-96.0); PLATELET COUNT, AUTOMATED 149 10^3/uL (150-450); RED BLOOD COUNT 4.55 10^6/uL (4.00-5.40); WHITE BLOOD COUNT 7.5 10^3/uL (4.0-10.0)
[2022-04-08 05:27] LABS: HEMOGLOBIN 14.7 g/dl (12.0-15.5)
[2022-04-08 05:36] LABS: BLOOD UREA NITROGEN 6 MG/DL (7-18); CALCIUM LEVEL 8.1 MG/DL (8.5-10.1); CARBON DIOXIDE LEVEL 22 MEQ/L (21-32); CHLORIDE LEVEL 106 MEQ/L (98-107); GLOMERULAR FILTRATION RATE > 60.0 (>60); GLUCOSE, FASTING 88 MG/DL (70-100); LIPASE 879 U/L (73-393); MAGNESIUM LEVEL 1.6 MG/DL (1.8-2.4); PHOSPHORUS LEVEL 2.9 MG/DL (2.5-4.9); POTASSIUM SERUM 3.5 MEQ/L (3.5-5.1); SODIUM LEVEL 139 MEQ/L (136-145)
[2022-04-08] MEDS: MORPHINE 2 MG/ML 1ML VIAL IV PRN ×3 (05:37→19:01)
[2022-04-08] MEDS: LR 1,000 ML IV SCH ×3 (05:38→18:32)
[2022-04-08] MEDS: ENOXAPARIN 40MG/0.4ML SYRINGE (J1650 PER 10MG) SC SCH (09:57)
[2022-04-08] MEDS: MULTIVITAMINS/MINERALS THERAP 1 TAB PO SCH (09:58)
[2022-04-08] MEDS: FOLIC ACID 1 MG TAB PO SCH (09:58)
[2022-04-08] MEDS: amLODIPine 5 MG TAB PO SCH (09:58)
[2022-04-08] MEDS: GABAPENTIN 300 MG CAP PO SCH ×3 (09:58→20:31)
[2022-04-08] MEDS: METOPROLOL SUCC (TopROL XL) 50MG **XL** TAB PO SCH ×2 (09:59→20:30)
[2022-04-08] MEDS: ESCITALOPRAM OXALATE 10 MG TAB (LEXAPRO) PO SCH (09:59)
[2022-04-08] MEDS: THIAMINE 100 MG TAB PO SCH ×2 (09:59→20:31)
[2022-04-08] MEDS: ONDANSETRON 4MG/2ML VIAL IV PRN ×3 (10:10→22:01)
[2022-04-08] MEDS: LORazepam 2 MG TAB PO PRN (22:02)
[2022-04-09] VITALS (7 sets, daily range): BP systolic 128–143; BP diastolic 66–89
[2022-04-09] MEDS: LR 1,000 ML IV SCH ×4 (01:43→22:30)
[2022-04-09] MEDS: MORPHINE 2 MG/ML 1ML VIAL IV PRN ×5 (03:50→19:45)
[2022-04-09 04:51] LABS: HEMATOCRIT 38.8 % (36.0-47.0); HEMOGLOBIN 13.4 g/dl (12.0-15.5); MEAN CORPUSCULAR HGB CONC 34.5 g/dl (32.0-36.5); MEAN CORPUSCULAR VOLUME 95.6 fl (80.0-96.0); PLATELET COUNT, AUTOMATED 128 10^3/uL (150-450); RED BLOOD COUNT 4.06 10^6/uL (4.00-5.40); WHITE BLOOD COUNT 4.9 10^3/uL (4.0-10.0)
[2022-04-09 05:20] LABS: ALBUMIN 2.7 GM/DL (3.2-5.2); ALT/SGPT 351 U/L (12-78); BILIRUBIN,TOTAL 1.2 MG/DL (0.2-1.0); BLOOD UREA NITROGEN 2 MG/DL (7-18); CALCIUM LEVEL 8.2 MG/DL (8.5-10.1); CARBON DIOXIDE LEVEL 26 MEQ/L (21-32); CHLORIDE LEVEL 106 MEQ/L (98-107); CREATININE FOR GFR 0.39 MG/DL (0.55-1.30); GLOMERULAR FILTRATION RATE > 60.0 (>60); GLUCOSE, FASTING 98 MG/DL (70-100); LIPASE 764 U/L (73-393); MAGNESIUM LEVEL 1.6 MG/DL (1.8-2.4); PHOSPHORUS LEVEL 2.4 MG/DL (2.5-4.9); POTASSIUM SERUM 3.3 MEQ/L (3.5-5.1); SODIUM LEVEL 139 MEQ/L (136-145); TOTAL PROTEIN 5.2 GM/DL (6.4-8.2)
[2022-04-09] MEDS: FOLIC ACID 1 MG TAB PO SCH (07:58)
[2022-04-09] MEDS: GABAPENTIN 300 MG CAP PO SCH ×3 (07:58→20:33)
[2022-04-09] MEDS: ESCITALOPRAM OXALATE 10 MG TAB (LEXAPRO) PO SCH (07:58)
[2022-04-09] MEDS: MULTIVITAMINS/MINERALS THERAP 1 TAB PO SCH (07:58)
[2022-04-09] MEDS: THIAMINE 100 MG TAB PO SCH ×2 (07:59→20:33)
[2022-04-09] MEDS: METOPROLOL SUCC (TopROL XL) 50MG **XL** TAB PO SCH ×2 (08:00→20:33)
[2022-04-09] MEDS ORDERED: MAGNESIUM OXIDE 400MG TAB (MAG-OX) PO ONE (08:00)
[2022-04-09] MEDS ORDERED: POTASSIUM CHLORIDE 10MEQ SR TABLET PO ONE (08:00)
[2022-04-09] MEDS: amLODIPine 5 MG TAB PO SCH (08:00)
[2022-04-09] MEDS: ENOXAPARIN 40MG/0.4ML SYRINGE (J1650 PER 10MG) SC SCH (08:01)
[2022-04-09 08:23] LABS: INR 1.11; PROTHROMBIN TIME 14.7 SECONDS (12.7-14.5)
[2022-04-09 08:24] LABS: PARTIAL THROMBOPLASTIN TIME 33.7 SECONDS (25.9-37.0)
[2022-04-09 09:50] LABS: SALICYLATE LEVEL < 1.7 MG/DL (5.0-30.0)
[2022-04-09] MEDS ORDERED: POTASSIUM PHOSPHATE INJ 20 MMOL in D5W 250 ML IV ONE (10:00)
[2022-04-09 12:37] LABS: ACETAMINOPHEN LEVEL < 2.0 UG/ML (0.0-30.0)
[2022-04-09] MEDS: ONDANSETRON 4MG/2ML VIAL IV PRN ×2 (13:45→23:26)
[2022-04-09] MEDS: LORazepam 2 MG TAB PO PRN (23:26)
[2022-04-09] MEDS: MORPHINE 4 MG/ML 1ML VIAL/SYRINGE IV PRN (23:27)
[2022-04-10] MEDS: LR 1,000 ML IV SCH ×2 (05:15→12:20)
[2022-04-10 05:36] LABS: HEMATOCRIT 40.2 % (36.0-47.0); HEMOGLOBIN 13.4 g/dl (12.0-15.5); MEAN CORPUSCULAR HEMOGLOBIN 31.8 pg (27.0-33.0); MEAN CORPUSCULAR HGB CONC 33.3 g/dl (32.0-36.5); MEAN CORPUSCULAR VOLUME 95.3 fl (80.0-96.0); PLATELET COUNT, AUTOMATED 129 10^3/uL (150-450); RED BLOOD COUNT 4.22 10^6/uL (4.00-5.40); WHITE BLOOD COUNT 4.5 10^3/uL (4.0-10.0)
[2022-04-10 06:00] VITALS: BP_SYST 130; BP_SYST 157; BP_DIAS 67; BP_DIAS 94
[2022-04-10 06:00] LABS: INR 1.03; PROTHROMBIN TIME 13.9 SECONDS (12.7-14.5)
[2022-04-10 06:01] LABS: PARTIAL THROMBOPLASTIN TIME 34.4 SECONDS (25.9-37.0)
[2022-04-10 06:08] LABS: ALBUMIN 2.8 GM/DL (3.2-5.2); ALT/SGPT 330 U/L (12-78); BILIRUBIN,TOTAL 0.6 MG/DL (0.2-1.0); BLOOD UREA NITROGEN 2 MG/DL (7-18); CALCIUM LEVEL 8.8 MG/DL (8.5-10.1); CARBON DIOXIDE LEVEL 29 MEQ/L (21-32); CHLORIDE LEVEL 106 MEQ/L (98-107); GLOMERULAR FILTRATION RATE > 60.0 (>60); GLUCOSE, FASTING 103 MG/DL (70-100); LIPASE 643 U/L (73-393); MAGNESIUM LEVEL 1.6 MG/DL (1.8-2.4); PHOSPHORUS LEVEL 3.7 MG/DL (2.5-4.9); POTASSIUM SERUM 3.8 MEQ/L (3.5-5.1); SODIUM LEVEL 140 MEQ/L (136-145); TOTAL PROTEIN 5.7 GM/DL (6.4-8.2)
[2022-04-10] MEDS: MULTIVITAMINS/MINERALS THERAP 1 TAB PO SCH (07:38)
[2022-04-10] MEDS: THIAMINE 100 MG TAB PO SCH (07:38)
[2022-04-10] MEDS: GABAPENTIN 300 MG CAP PO SCH (07:38)
[2022-04-10 07:39] VITALS: BP 137/88
[2022-04-10] MEDS: METOPROLOL SUCC (TopROL XL) 50MG **XL** TAB PO SCH (07:39)
[2022-04-10] MEDS: ESCITALOPRAM OXALATE 10 MG TAB (LEXAPRO) PO SCH (07:39)
[2022-04-10] MEDS: FOLIC ACID 1 MG TAB PO SCH (07:39)
[2022-04-10] MEDS: amLODIPine 5 MG TAB PO SCH (07:39)
[2022-04-10] MEDS: ENOXAPARIN 40MG/0.4ML SYRINGE (J1650 PER 10MG) SC SCH (07:41)
[2022-04-10] MEDS: MORPHINE 2 MG/ML 1ML VIAL IV PRN (07:42)
[2022-04-10] MEDS ORDERED: VITMTA PO (11:54)
[2022-04-10] MEDS ORDERED: FOLI1TAB11 PO (11:54)
[2022-04-10] MEDS ORDERED: THIA100T7 PO (11:54)
[2022-04-10] MEDS ORDERED: MAGNESIUM OXIDE 400MG TAB (MAG-OX) PO ONE (11:55)
[2022-04-10 14:00] VITALS: BP 120/55
== END 2022-04-10 14:10 | disposition home or self-care (01) | DRG 440 ==
LOC: M ED 12:17 → M ED INP 15:48 → M PCU 20:56
PROVIDERS: ADMIT Internal Medicine; ATTEND Internal Medicine
DX: K85.20 Alcohol induced acute pancreatitis without necrosis or infection (principal); I10 Essential (primary) hypertension; Z79.899 Other long term (current) drug therapy; F41.9 Anxiety disorder, unspecified; F43.10 Post-traumatic stress disorder, unspecified; F17.200 Nicotine dependence, unspecified, uncomplicated

== ENCOUNTER 2022-04-17 16:53 | Inpatient (IN) | payer MEDICARE ==
[~2022-04-17] VITALS: Ht 167.6 cm; Wt 85.9 kg
[~2022-04-17 16:53] MED LIST changes: +FOLI1TAB11 PO; +GABA600T4 PO; +IBUP1TAB7 PO; +LEXA1TAB PO; +THIA100T7 PO; +VITMTA PO
[2022-04-17 17:39] LABS: BASO # 0.1 10^3/uL (0.0-0.2); BASO % 0.5 % (0.0-1.0); EOS # 0.2 10^3/uL (0.0-0.5); EOS % 1.8 % (0.0-3.0); HEMATOCRIT 51.9 % (36.0-47.0); HEMOGLOBIN 17.9 g/dl (12.0-15.5); LYMPH # 1.5 10^3/uL (1.5-5.0); LYMPH % 14.1 % (24.0-44.0); MEAN CORPUSCULAR HEMOGLOBIN 32.4 pg (27.0-33.0); MEAN CORPUSCULAR HGB CONC 34.5 g/dl (32.0-36.5); MEAN CORPUSCULAR VOLUME 93.9 fl (80.0-96.0); MONO # 0.7 10^3/uL (0.0-0.8); MONO % 6.9 % (2.0-8.0); NEUTROPHILS # 7.9 10^3/uL (1.5-8.5); NEUTROPHILS % 76.4 % (36.0-66.0); PLATELET COUNT, AUTOMATED 367 10^3/uL (150-450); RED BLOOD COUNT 5.53 10^6/uL (4.00-5.40); WHITE BLOOD COUNT 10.3 10^3/uL (4.0-10.0)
[2022-04-17] MEDS ORDERED: NS 1,000 ML IV ONE (17:40)
[2022-04-17] MEDS ORDERED: MORPHINE 4 MG/ML 1ML VIAL/SYRINGE IV ONE (17:40)
[2022-04-17] MEDS ORDERED: ONDANSETRON 4MG 2ML VIAL As Ordered ONE (17:45)
[2022-04-17] MEDS ORDERED: ONDANSETRON 4MG 2ML VIAL IV ONE (17:45)
[2022-04-17 18:07] LABS: ALBUMIN 3.4 GM/DL (3.2-5.2); ALT/SGPT 62 U/L (12-78); BILIRUBIN,DIRECT < 0.1 MG/DL (0.0-0.2); BILIRUBIN,TOTAL 0.4 MG/DL (0.2-1.0); LIPASE 1192 U/L (73-393)
[2022-04-17] MEDS ORDERED: ISOVUE-370 76% 100ML VIAL As Ordered ONE (18:34)
[2022-04-17 19:06] LABS: BLOOD UREA NITROGEN 7 MG/DL (7-18); CALCIUM LEVEL 9.4 MG/DL (8.5-10.1); CARBON DIOXIDE LEVEL 27 MEQ/L (21-32); CHLORIDE LEVEL 106 MEQ/L (98-107); CREATININE FOR GFR 0.59 MG/DL (0.55-1.30); GLOMERULAR FILTRATION RATE > 60.0 (>60); GLUCOSE, FASTING 124 MG/DL (70-100); POTASSIUM SERUM 4.4 MEQ/L (3.5-5.1); SODIUM LEVEL 137 MEQ/L (136-145)
[2022-04-17] MEDS ORDERED: HYDROMORPHONE HCL 0.5 MG/ 0.5 ML SYRINGE (J1170 PER 1) IV ONE (19:10)
[2022-04-17] MEDS ORDERED: PROMETHAZINE 25MG/ML 1ML VIAL IV ONE (19:35)
[2022-04-17] MEDS ORDERED: PANTOPRAZOLE 40MG VIAL IV ONE (20:25)
[2022-04-17 20:51] LABS: RSV AMPLIFICATION NEGATIVE (NEGATIVE)
[2022-04-17] MEDS: METOPROLOL SUCC (TopROL XL) 50MG **XL** TAB PO SCH (21:00)
[2022-04-17] MEDS ORDERED: FOLI1TAB11 PO (21:59)
[2022-04-17] MEDS ORDERED: THIA100T22 PO (21:59)
[2022-04-17] MEDS ORDERED: THERTAB21 PO (21:59)
[2022-04-17] MEDS ORDERED: HOME MED LIST COMPLETE! XX SCH (22:45)
[2022-04-17] MEDS ORDERED: HYDROmorphone 2 MG TAB PO PRN (22:45)
[2022-04-17] MEDS ORDERED: MOM 30ML SUSPENSION UDC PO PRN (22:45)
[2022-04-17] MEDS: NS 1,000 ML IV SCH (22:45)
[2022-04-17] MEDS ORDERED: PILL CUTTER 1 EACH XX PRN (23:00)
[2022-04-18] MEDS: MORPHINE 2 MG/ML 1ML VIAL IV PRN ×2 (00:50→03:56)
[2022-04-18 02:00] VITALS: BP 126/83
[2022-04-18] MEDS ORDERED: MORPHINE 2 MG/ML 1ML VIAL IV ONE (05:00)
[2022-04-18 05:24] VITALS: BP 116/76
[2022-04-18] MEDS: NS 1,000 ML IV SCH (05:24)
[2022-04-18] MEDS ORDERED: HYDROMORPHONE HCL 0.5 MG/ 0.5 ML SYRINGE (J1170 PER 1) IV ONE (06:00)
[2022-04-18 06:28] LABS: HEMATOCRIT 49.1 % (36.0-47.0); HEMOGLOBIN 16.6 g/dl (12.0-15.5); MEAN CORPUSCULAR HEMOGLOBIN 32.6 pg (27.0-33.0); MEAN CORPUSCULAR HGB CONC 33.8 g/dl (32.0-36.5); MEAN CORPUSCULAR VOLUME 96.5 fl (80.0-96.0); PLATELET COUNT, AUTOMATED 360 10^3/uL (150-450); RED BLOOD COUNT 5.09 10^6/uL (4.00-5.40); WHITE BLOOD COUNT 12.3 10^3/uL (4.0-10.0)
[2022-04-18 06:59] VITALS: BP 128/93
[2022-04-18 07:00] LABS: ALBUMIN 3.3 GM/DL (3.2-5.2); ALT/SGPT 43 U/L (12-78); BILIRUBIN,TOTAL 0.7 MG/DL (0.2-1.0); BLOOD UREA NITROGEN 10 MG/DL (7-18); CARBON DIOXIDE LEVEL 19 MEQ/L (21-32); CHLORIDE LEVEL 109 MEQ/L (98-107); CHOLESTEROL LEVEL 100 MG/DL (<200); CREATININE FOR GFR 0.65 MG/DL (0.55-1.30); GLOMERULAR FILTRATION RATE > 60.0 (>60); GLUCOSE, FASTING 143 MG/DL (70-100); HDL CHOLESTEROL 40 MG/DL (>40); LDL CHOLESTEROL 40 MG/DL (<100); NON-HDL-C 60 MG/DL; POTASSIUM SERUM 4.7 MEQ/L (3.5-5.1); SODIUM LEVEL 140 MEQ/L (136-145); TOTAL PROTEIN 6.4 GM/DL (6.4-8.2); TRIGLYCERIDES LEVEL 101 MG/DL (<150)
[2022-04-18] MEDS ORDERED: MORPHINE 4 MG/ML 1ML VIAL/SYRINGE IV PRN (07:00)
[2022-04-18] MEDS ORDERED: ONDANSETRON 4MG 2ML VIAL IV PRN (07:55)
[2022-04-18] MEDS ORDERED: amLODIPine 5 MG TAB PO SCH (09:00)
[2022-04-18] MEDS: ESCITALOPRAM OXALATE 10 MG TAB (LEXAPRO) PO SCH (09:16)
[2022-04-18] MEDS: GABAPENTIN 300 MG CAP PO SCH ×3 (09:16→21:05)
[2022-04-18] MEDS: ENOXAPARIN 40MG/0.4ML SYRINGE (J1650 PER 10MG) SC SCH (09:16)
[2022-04-18] MEDS: PANTOPRAZOLE 40MG VIAL IV SCH ×2 (09:16→21:05)
[2022-04-18] MEDS: LR 1,000 ML IV SCH ×3 (09:17→22:54)
[2022-04-18] MEDS: METOPROLOL SUCC (TopROL XL) 50MG **XL** TAB PO SCH ×2 (09:18→21:08)
[2022-04-18] MEDS: HYDROMORPHONE HCL 0.5 MG/ 0.5 ML SYRINGE (J1170 PER 1) IV PRN ×3 (11:55→23:24)
[2022-04-18 14:00] VITALS: BP 105/70
[2022-04-18] MEDS: MORPHINE 4 MG/ML 1ML VIAL/SYRINGE IV PRN ×2 (15:38→21:07)
[2022-04-18 22:00] VITALS: BP 115/74
[2022-04-19] MEDS: MORPHINE 4 MG/ML 1ML VIAL/SYRINGE IV PRN ×5 (02:09→23:14)
[2022-04-19] MEDS: HYDROMORPHONE HCL 0.5 MG/ 0.5 ML SYRINGE (J1170 PER 1) IV PRN ×4 (04:23→21:43)
[2022-04-19 06:00] VITALS: BP 113/71
[2022-04-19] MEDS: LR 1,000 ML IV SCH ×2 (06:32→13:24)
[2022-04-19] MEDS: PANTOPRAZOLE 40MG VIAL IV SCH ×2 (08:39→21:14)
[2022-04-19] MEDS: ESCITALOPRAM OXALATE 10 MG TAB (LEXAPRO) PO SCH (08:39)
[2022-04-19] MEDS: GABAPENTIN 300 MG CAP PO SCH ×3 (08:39→21:10)
[2022-04-19] MEDS: ENOXAPARIN 40MG/0.4ML SYRINGE (J1650 PER 10MG) SC SCH (08:39)
[2022-04-19] MEDS: METOPROLOL SUCC (TopROL XL) 50MG **XL** TAB PO SCH ×2 (08:42→21:14)
[2022-04-19 08:55] LABS: BASO % 0.2 % (0.0-1.0); EOS % 0.2 % (0.0-3.0); LYMPH # 1.3 10^3/uL (1.5-5.0); LYMPH % 7.9 % (24.0-44.0); MEAN CORPUSCULAR HEMOGLOBIN 32.9 pg (27.0-33.0); MEAN CORPUSCULAR HGB CONC 33.9 g/dl (32.0-36.5); MEAN CORPUSCULAR VOLUME 96.9 fl (80.0-96.0); MONO # 1.1 10^3/uL (0.0-0.8); MONO % 6.8 % (2.0-8.0); NEUTROPHILS # 13.9 10^3/uL (1.5-8.5); NEUTROPHILS % 84.1 % (36.0-66.0); PLATELET COUNT, AUTOMATED 241 10^3/uL (150-450); RED BLOOD COUNT 4.23 10^6/uL (4.00-5.40); WHITE BLOOD COUNT 16.5 10^3/uL (4.0-10.0)
[2022-04-19 08:59] LABS: HEMOGLOBIN 13.9 g/dl (12.0-15.5)
[2022-04-19 09:29] LABS: ALBUMIN 2.5 GM/DL (3.2-5.2); ALT/SGPT 29 U/L (12-78); BILIRUBIN,TOTAL 1.1 MG/DL (0.2-1.0); BLOOD UREA NITROGEN 9 MG/DL (7-18); CALCIUM LEVEL 8.5 MG/DL (8.5-10.1); CARBON DIOXIDE LEVEL 25 MEQ/L (21-32); CHLORIDE LEVEL 106 MEQ/L (98-107); CREATININE FOR GFR 0.44 MG/DL (0.55-1.30); GLOMERULAR FILTRATION RATE > 60.0 (>60); GLUCOSE, FASTING 93 MG/DL (70-100); LIPASE 385 U/L (73-393); POTASSIUM SERUM 4.2 MEQ/L (3.5-5.1); SODIUM LEVEL 138 MEQ/L (136-145); TOTAL PROTEIN 5.5 GM/DL (6.4-8.2)
[2022-04-19 14:38] VITALS: O2SAT 90
[2022-04-19 14:55] LABS: ABG BASE EXCESS -0.8 (-2.0-2.0); ABG HCO3 22.9 MEQ/L (22.0-26.0); ABG O2 SATURATION 92.9 % (95.0-99.0); ABG PARTIAL PRESSURE CO2 35.3 mmHg (35.0-45.0); ABG PARTIAL PRESSURE O2 61.2 mmHg (75.0-100.0); ABG STANDARD HCO3 23.7 MEQ/L (22.0-26.0)
[2022-04-19 15:01] VITALS: O2SAT 92
[2022-04-19 15:18] VITALS: BP 110/72
[2022-04-19] MEDS: PIPERACILLIN/TAZOBACTAM SOD 3.375 GM in D5W MINI-BAG PLUS 50 ML IV SCH ×2 (15:37→21:15)
[2022-04-19] MEDS ORDERED: ALBUTEROL SULFATE 2.5 MG/0.5 ML INH NEB SOLN NEB SCH (16:00)
[2022-04-19] MEDS ORDERED: SODIUM CHLORIDE HYPERTONIC 3% 15ML NEB SOL INH SCH (16:00)
[2022-04-19] MEDS: ALBUTEROL SULFATE 2.5 MG/0.5 ML INH NEB SOLN NEB SCH (19:39)
[2022-04-19 22:00] VITALS: BP 112/75
[2022-04-20] MEDS: HYDROMORPHONE HCL 0.5 MG/ 0.5 ML SYRINGE (J1170 PER 1) IV PRN ×4 (01:44→21:16)
[2022-04-20] MEDS: LR 1,000 ML IV SCH ×3 (04:49→23:37)
[2022-04-20] MEDS: PIPERACILLIN/TAZOBACTAM SOD 3.375 GM in D5W MINI-BAG PLUS 50 ML IV SCH ×4 (04:49→21:15)
[2022-04-20] MEDS: MORPHINE 4 MG/ML 1ML VIAL/SYRINGE IV PRN ×3 (04:51→17:48)
[2022-04-20 06:00] VITALS: BP 113/72
[2022-04-20 06:26] LABS: BASO % 0.2 % (0.0-1.0); EOS # 0.1 10^3/uL (0.0-0.5); EOS % 0.5 % (0.0-3.0); HEMATOCRIT 38.9 % (36.0-47.0); MEAN CORPUSCULAR HEMOGLOBIN 32.9 pg (27.0-33.0); MEAN CORPUSCULAR HGB CONC 33.4 g/dl (32.0-36.5); MEAN CORPUSCULAR VOLUME 98.5 fl (80.0-96.0); MONO # 1.3 10^3/uL (0.0-0.8); MONO % 7.6 % (2.0-8.0); NEUTROPHILS # 14.5 10^3/uL (1.5-8.5); NEUTROPHILS % 84.1 % (36.0-66.0); PLATELET COUNT, AUTOMATED 257 10^3/uL (150-450); RED BLOOD COUNT 3.95 10^6/uL (4.00-5.40); WHITE BLOOD COUNT 17.3 10^3/uL (4.0-10.0)
[2022-04-20 06:42] LABS: BLOOD UREA NITROGEN 6 MG/DL (7-18); CALCIUM LEVEL 8.6 MG/DL (8.5-10.1); CARBON DIOXIDE LEVEL 26 MEQ/L (21-32); CHLORIDE LEVEL 102 MEQ/L (98-107); CREATININE FOR GFR 0.49 MG/DL (0.55-1.30); GLOMERULAR FILTRATION RATE > 60.0 (>60); GLUCOSE, FASTING 97 MG/DL (70-100); POTASSIUM SERUM 4.2 MEQ/L (3.5-5.1); SODIUM LEVEL 136 MEQ/L (136-145)
[2022-04-20] MEDS: ALBUTEROL SULFATE 2.5 MG/0.5 ML INH NEB SOLN NEB SCH ×3 (07:32→19:23)
[2022-04-20] MEDS: ESCITALOPRAM OXALATE 10 MG TAB (LEXAPRO) PO SCH (09:03)
[2022-04-20] MEDS: GABAPENTIN 300 MG CAP PO SCH ×3 (09:03→21:13)
[2022-04-20] MEDS: PANTOPRAZOLE 40MG VIAL IV SCH ×2 (09:04→21:13)
[2022-04-20] MEDS: ENOXAPARIN 40MG/0.4ML SYRINGE (J1650 PER 10MG) SC SCH (09:04)
[2022-04-20] MEDS: METOPROLOL SUCC (TopROL XL) 50MG **XL** TAB PO SCH ×2 (09:04→21:35)
[2022-04-20 11:38] VITALS: BP 113/75
[2022-04-20 14:00] VITALS: BP 127/83
[2022-04-20 20:00] VITALS: BP 126/89
[2022-04-21] VITALS (39 sets, daily range): BP systolic 117–149; BP diastolic 80–102
[2022-04-21] MEDS: MORPHINE 4 MG/ML 1ML VIAL/SYRINGE IV PRN ×2 (00:11→06:32)
[2022-04-21] MEDS: PIPERACILLIN/TAZOBACTAM SOD 3.375 GM in D5W MINI-BAG PLUS 50 ML IV SCH ×4 (03:06→21:47)
[2022-04-21] MEDS: HYDROMORPHONE HCL 0.5 MG/ 0.5 ML SYRINGE (J1170 PER 1) IV PRN ×2 (03:29→09:31)
[2022-04-21 06:33] LABS: BASO % 0.2 % (0.0-1.0); EOS # 0.1 10^3/uL (0.0-0.5); EOS % 0.7 % (0.0-3.0); HEMATOCRIT 37.2 % (36.0-47.0); HEMOGLOBIN 12.6 g/dl (12.0-15.5); LYMPH # 0.9 10^3/uL (1.5-5.0); MEAN CORPUSCULAR HEMOGLOBIN 32.1 pg (27.0-33.0); MEAN CORPUSCULAR HGB CONC 33.9 g/dl (32.0-36.5); MEAN CORPUSCULAR VOLUME 94.9 fl (80.0-96.0); MONO # 1.3 10^3/uL (0.0-0.8); MONO % 9.2 % (2.0-8.0); NEUTROPHILS # 11.7 10^3/uL (1.5-8.5); NEUTROPHILS % 83.3 % (36.0-66.0); PLATELET COUNT, AUTOMATED 268 10^3/uL (150-450); RED BLOOD COUNT 3.92 10^6/uL (4.00-5.40); WHITE BLOOD COUNT 14.1 10^3/uL (4.0-10.0)
[2022-04-21 07:02] LABS: BLOOD UREA NITROGEN 3 MG/DL (7-18); CALCIUM LEVEL 8.6 MG/DL (8.5-10.1); CARBON DIOXIDE LEVEL 25 MEQ/L (21-32); CHLORIDE LEVEL 102 MEQ/L (98-107); CREATININE FOR GFR 0.31 MG/DL (0.55-1.30); GLOMERULAR FILTRATION RATE > 60.0 (>60); GLUCOSE, FASTING 108 MG/DL (70-100); POTASSIUM SERUM 3.6 MEQ/L (3.5-5.1); SODIUM LEVEL 137 MEQ/L (136-145)
[2022-04-21] MEDS: ENOXAPARIN 40MG/0.4ML SYRINGE (J1650 PER 10MG) SC SCH (07:18)
[2022-04-21] MEDS: ALBUTEROL SULFATE 2.5 MG/0.5 ML INH NEB SOLN NEB SCH ×2 (07:31→14:09)
[2022-04-21] MEDS: PANTOPRAZOLE 40MG VIAL IV SCH ×2 (09:31→20:46)
[2022-04-21] MEDS: GABAPENTIN 300 MG CAP PO SCH ×3 (09:31→20:44)
[2022-04-21] MEDS: ESCITALOPRAM OXALATE 10 MG TAB (LEXAPRO) PO SCH (09:32)
[2022-04-21] MEDS: METOPROLOL SUCC (TopROL XL) 50MG **XL** TAB PO SCH ×2 (09:32→20:45)
[2022-04-21] MEDS ORDERED: ISOVUE-370 76% 100ML VIAL As Ordered ONE (12:12)
[2022-04-21] MEDS ORDERED: HYDROMORPHONE HCL 0.5 MG/ 0.5 ML SYRINGE (J1170 PER 1) IV ONE (13:45)
[2022-04-21] MEDS ORDERED: LEVALBUTEROL 1.25 MG/0.5 ML CONCENTRATE NEB NEB PRN (14:50)
[2022-04-21] MEDS ORDERED: ACETAMINOPHEN TAB 650MG DOSE (2X325MG) PO PRN (14:50)
[2022-04-21] MEDS ORDERED: BISACODYL 10 MG SUPP PR PRN (14:50)
[2022-04-21] MEDS ORDERED: MIDAZOLAM INJ 2MG/2ML VIAL (J2250 PER 1MG) As Ordered ONE ×4 (14:52→15:39)
[2022-04-21] MEDS ORDERED: flumazeniL 0.5 MG/5 ML VIAL As Ordered ONE (14:53)
[2022-04-21] MEDS ORDERED: LIDOCAINE 1% MDV 20ML VIAL As Ordered ONE ×2 (15:42→15:53)
[2022-04-21] MEDS ORDERED: MIDAZOLAM INJ 2MG/2ML VIAL (J2250 PER 1MG) IV SCH (15:44)
[2022-04-21] MEDS ORDERED: LIDOCAINE 1% MDV 20ML VIAL SC ONE (15:50)
[2022-04-21] MEDS ORDERED: KETOROLAC 30 MG/ML 1ML VIAL As Ordered ONE (16:01)
[2022-04-21 16:10] LABS: INR 1.02; PROTHROMBIN TIME 13.8 SECONDS (12.7-14.5)
[2022-04-21] MEDS ORDERED: ALTEPLASE 2MG/2ML VIAL INTRAPLEU ONE (16:10)
[2022-04-21] MEDS: KETOROLAC 30 MG/ML 1ML VIAL IV SCH ×2 (16:30→21:48)
[2022-04-21] MEDS ORDERED: HYDROMORPHONE HCL 0.5 MG/ 0.5 ML SYRINGE (J1170 PER 1) IV PRN (17:30)
[2022-04-21 19:05] LABS: PH BODY FLUID 7.617 UNITS (NOT ESTABLISHED); SOURCE, BODY FLUID pH PLEURAL
[2022-04-21 19:12] LABS: APPEARANCE, BODY FLUID CLOUDY (CLEAR); PLEURAL FL COLOR AMBER (COLORLESS); SOURCE, BODY FLUID PLEURAL
[2022-04-21 19:26] LABS: AMYLASE, BODY FLUID 71 U/L (NOT ESTABLISHED); CHOLESTEROL, BODY FLUID < 50 MG/DL (NOT ESTABLISHED); LDH, BODY FLUID 1704 U/L (NOT ESTABLISHED); SOURCE, BODY FLUID ALBUMIN PLEURAL; SOURCE, BODY FLUID AMYLASE PLEURAL; SOURCE, BODY FLUID CHOL PLEURAL; SOURCE, BODY FLUID GLUCOSE PLEURAL; SOURCE, BODY FLUID LDH PLEURAL; SOURCE, BODY FLUID TOT PROTEIN PLEURAL; SOURCE, BODY FLUID TRIG PLEURAL; TOTAL PROTEIN, BODY FLUID 4.1 G/DL (NOT ESTABLISHED); TRIGLYCERIDE, BODY FLUID 29 MG/DL (NOT ESTABLISHED)
[2022-04-21] MEDS: LEVALBUTEROL 1.25 MG/0.5 ML CONCENTRATE NEB NEB SCH (19:30)
[2022-04-21] MEDS: PERCOCET 5MG/325MG TAB PO PRN (19:38)
[2022-04-21] MEDS: DOCUSATE SODIUM 100MG CAPSULE PO SCH (20:44)
[2022-04-22] VITALS: BP 124/82
[2022-04-22] MEDS: LEVALBUTEROL 1.25 MG/0.5 ML CONCENTRATE NEB NEB SCH ×4 (02:00→20:26)
[2022-04-22 04:00] VITALS: BP 142/88
[2022-04-22] MEDS: PIPERACILLIN/TAZOBACTAM SOD 3.375 GM in D5W MINI-BAG PLUS 50 ML IV SCH ×4 (04:01→21:04)
[2022-04-22] MEDS: KETOROLAC 30 MG/ML 1ML VIAL IV SCH ×4 (04:02→21:04)
[2022-04-22] MEDS: PERCOCET 5MG/325MG TAB PO PRN ×4 (07:40→21:16)
[2022-04-22 08:00] VITALS: BP 133/88
[2022-04-22] MEDS: METOPROLOL SUCC (TopROL XL) 50MG **XL** TAB PO SCH ×2 (08:12→21:03)
[2022-04-22] MEDS: ESCITALOPRAM OXALATE 10 MG TAB (LEXAPRO) PO SCH (08:12)
[2022-04-22] MEDS: ENOXAPARIN 40MG/0.4ML SYRINGE (J1650 PER 10MG) SC SCH (08:13)
[2022-04-22] MEDS: GABAPENTIN 300 MG CAP PO SCH ×3 (08:13→21:02)
[2022-04-22] MEDS: PANTOPRAZOLE 40MG VIAL IV SCH ×2 (08:13→21:02)
[2022-04-22] MEDS: DOCUSATE SODIUM 100MG CAPSULE PO SCH ×2 (08:13→21:03)
[2022-04-22 09:01] LABS: BASO % 0.3 % (0.0-1.0); EOS # 0.1 10^3/uL (0.0-0.5); EOS % 1.2 % (0.0-3.0); HEMATOCRIT 37.9 % (36.0-47.0); HEMOGLOBIN 12.9 g/dl (12.0-15.5); LYMPH # 0.9 10^3/uL (1.5-5.0); LYMPH % 8.7 % (24.0-44.0); MEAN CORPUSCULAR HEMOGLOBIN 32.6 pg (27.0-33.0); MEAN CORPUSCULAR VOLUME 95.7 fl (80.0-96.0); MONO % 9.9 % (2.0-8.0); NEUTROPHILS # 7.9 10^3/uL (1.5-8.5); NEUTROPHILS % 79.1 % (36.0-66.0); PLATELET COUNT, AUTOMATED 317 10^3/uL (150-450); RED BLOOD COUNT 3.96 10^6/uL (4.00-5.40)
[2022-04-22 09:38] LABS: BLOOD UREA NITROGEN 5 MG/DL (7-18); CALCIUM LEVEL 8.3 MG/DL (8.5-10.1); CARBON DIOXIDE LEVEL 27 MEQ/L (21-32); CHLORIDE LEVEL 105 MEQ/L (98-107); CREATININE FOR GFR 0.39 MG/DL (0.55-1.30); GLOMERULAR FILTRATION RATE > 60.0 (>60); GLUCOSE, FASTING 126 MG/DL (70-100); POTASSIUM SERUM 3.4 MEQ/L (3.5-5.1); SODIUM LEVEL 139 MEQ/L (136-145)
[2022-04-22 12:00] VITALS: BP 120/75
[2022-04-22] MEDS ORDERED: SODIUM CHLORIDE 0.9% 100ML BAG INTRAPLEU ONE (15:35)
[2022-04-22] MEDS ORDERED: ALTEPLASE 2MG/2ML VIAL INTRAPLEU ONE (15:35)
[2022-04-22] MEDS ORDERED: DORNASE INHALATION SOLN 1 MG/ML 2.5 ML AMP INTRAPLEU ONE (15:35)
[2022-04-22 16:00] VITALS: BP 127/82
[2022-04-22] MEDS: MORPHINE 4 MG/ML 1ML VIAL/SYRINGE IV PRN (19:45)
[2022-04-22 20:00] VITALS: BP 126/80
[2022-04-23] VITALS (7 sets, daily range): BP systolic 115–132; BP diastolic 68–75
[2022-04-23] MEDS: MORPHINE 4 MG/ML 1ML VIAL/SYRINGE IV PRN ×2 (00:21→08:52)
[2022-04-23] MEDS: LEVALBUTEROL 1.25 MG/0.5 ML CONCENTRATE NEB NEB SCH ×4 (00:59→20:24)
[2022-04-23] MEDS: PERCOCET 5MG/325MG TAB PO PRN ×5 (01:20→21:58)
[2022-04-23] MEDS: PIPERACILLIN/TAZOBACTAM SOD 3.375 GM in D5W MINI-BAG PLUS 50 ML IV SCH ×4 (03:38→21:57)
[2022-04-23] MEDS: KETOROLAC 30 MG/ML 1ML VIAL IV SCH ×4 (03:39→21:57)
[2022-04-23 04:30] LABS: BASO # 0.1 10^3/uL (0.0-0.2); BASO % 0.8 % (0.0-1.0); EOS # 0.2 10^3/uL (0.0-0.5); EOS % 2.7 % (0.0-3.0); HEMATOCRIT 36.5 % (36.0-47.0); HEMOGLOBIN 12.1 g/dl (12.0-15.5); LYMPH # 1.5 10^3/uL (1.5-5.0); LYMPH % 17.1 % (24.0-44.0); MEAN CORPUSCULAR HEMOGLOBIN 31.8 pg (27.0-33.0); MEAN CORPUSCULAR HGB CONC 33.2 g/dl (32.0-36.5); MEAN CORPUSCULAR VOLUME 95.8 fl (80.0-96.0); NEUTROPHILS # 5.6 10^3/uL (1.5-8.5); NEUTROPHILS % 65.9 % (36.0-66.0); PLATELET COUNT, AUTOMATED 321 10^3/uL (150-450); RED BLOOD COUNT 3.81 10^6/uL (4.00-5.40); WHITE BLOOD COUNT 8.5 10^3/uL (4.0-10.0)
[2022-04-23] MEDS: ENOXAPARIN 40MG/0.4ML SYRINGE (J1650 PER 10MG) SC SCH (08:52)
[2022-04-23] MEDS: GABAPENTIN 300 MG CAP PO SCH ×3 (08:53→21:02)
[2022-04-23] MEDS: ESCITALOPRAM OXALATE 10 MG TAB (LEXAPRO) PO SCH (08:53)
[2022-04-23] MEDS: PANTOPRAZOLE 40MG VIAL IV SCH ×2 (08:53→21:02)
[2022-04-23] MEDS: METOPROLOL SUCC (TopROL XL) 50MG **XL** TAB PO SCH ×2 (08:53→21:04)
[2022-04-23] MEDS: MOM 30ML SUSPENSION UDC PO SCH (09:00)
[2022-04-23] MEDS: SENOKOT S TAB PO SCH ×2 (09:00→21:02)
[2022-04-23 16:49] LABS: BLOOD UREA NITROGEN 5 MG/DL (7-18); CALCIUM LEVEL 8.5 MG/DL (8.5-10.1); CARBON DIOXIDE LEVEL 34 MEQ/L (21-32); CHLORIDE LEVEL 106 MEQ/L (98-107); CREATININE FOR GFR 0.52 MG/DL (0.55-1.30); GLOMERULAR FILTRATION RATE > 60.0 (>60); GLUCOSE, FASTING 91 MG/DL (70-100); POTASSIUM SERUM 3.7 MEQ/L (3.5-5.1); SODIUM LEVEL 143 MEQ/L (136-145)
[2022-04-24 00:02] VITALS: BP 125/73
[2022-04-24] MEDS: PERCOCET 5MG/325MG TAB PO PRN ×5 (01:57→22:43)
[2022-04-24] MEDS: LEVALBUTEROL 1.25 MG/0.5 ML CONCENTRATE NEB NEB SCH ×4 (02:00→19:25)
[2022-04-24] MEDS: PIPERACILLIN/TAZOBACTAM SOD 3.375 GM in D5W MINI-BAG PLUS 50 ML IV SCH ×4 (03:19→22:14)
[2022-04-24] MEDS: KETOROLAC 30 MG/ML 1ML VIAL IV SCH ×4 (03:20→22:14)
[2022-04-24 04:10] VITALS: BP 125/78
[2022-04-24 06:13] LABS: BASO # 0.1 10^3/uL (0.0-0.2); BASO % 0.9 % (0.0-1.0); EOS # 0.4 10^3/uL (0.0-0.5); EOS % 4.9 % (0.0-3.0); HEMATOCRIT 34.7 % (36.0-47.0); HEMOGLOBIN 11.4 g/dl (12.0-15.5); LYMPH # 1.5 10^3/uL (1.5-5.0); LYMPH % 19.3 % (24.0-44.0); MEAN CORPUSCULAR HEMOGLOBIN 31.8 pg (27.0-33.0); MEAN CORPUSCULAR HGB CONC 32.9 g/dl (32.0-36.5); MEAN CORPUSCULAR VOLUME 96.9 fl (80.0-96.0); MONO # 0.9 10^3/uL (0.0-0.8); MONO % 11.7 % (2.0-8.0); NEUTROPHILS # 4.8 10^3/uL (1.5-8.5); NEUTROPHILS % 61.3 % (36.0-66.0); PLATELET COUNT, AUTOMATED 328 10^3/uL (150-450); RED BLOOD COUNT 3.58 10^6/uL (4.00-5.40); WHITE BLOOD COUNT 7.9 10^3/uL (4.0-10.0)
[2022-04-24 06:36] LABS: BLOOD UREA NITROGEN 4 MG/DL (7-18); CARBON DIOXIDE LEVEL 33 MEQ/L (21-32); CHLORIDE LEVEL 105 MEQ/L (98-107); CREATININE FOR GFR 0.38 MG/DL (0.55-1.30); GLOMERULAR FILTRATION RATE > 60.0 (>60); GLUCOSE, FASTING 86 MG/DL (70-100); POTASSIUM SERUM 3.4 MEQ/L (3.5-5.1); SODIUM LEVEL 140 MEQ/L (136-145)
[2022-04-24 08:00] VITALS: BP 133/87
[2022-04-24] MEDS: SENOKOT S TAB PO SCH ×2 (09:00→20:38)
[2022-04-24] MEDS: MOM 30ML SUSPENSION UDC PO SCH (09:00)
[2022-04-24] MEDS: GABAPENTIN 300 MG CAP PO SCH ×3 (09:07→20:38)
[2022-04-24] MEDS: PANTOPRAZOLE 40MG VIAL IV SCH ×2 (09:08→20:38)
[2022-04-24] MEDS: ENOXAPARIN 40MG/0.4ML SYRINGE (J1650 PER 10MG) SC SCH (09:08)
[2022-04-24] MEDS: METOPROLOL SUCC (TopROL XL) 50MG **XL** TAB PO SCH ×2 (09:08→20:38)
[2022-04-24] MEDS: ESCITALOPRAM OXALATE 10 MG TAB (LEXAPRO) PO SCH (09:12)
[2022-04-24] MEDS: POTASSIUM CHLORIDE 10MEQ SR TABLET PO SCH ×2 (09:12→20:38)
[2022-04-24] MEDS ORDERED: VANCOMYCIN HCL 1,000 MG, VIAL MATE ADAPTER 1 EACH in NS 250 ML IV SCH (11:55)
[2022-04-24 12:00] VITALS: BP 142/92
[2022-04-24] MEDS ORDERED: LIDOCAINE 1% MDV 20ML VIAL As Ordered ONE (13:14)
[2022-04-24] MEDS ORDERED: VANCOMYCIN HCL 1,000 MG, VIAL MATE ADAPTER 1 EACH in D5W 250 ML IV ONE (14:00)
[2022-04-24] MEDS ORDERED: FUROSEMIDE 100MG/10ML VIAL (J1940) IV ONE (14:00)
[2022-04-24] MEDS ORDERED: HYDROMORPHONE HCL 0.5 MG/ 0.5 ML SYRINGE (J1170 PER 1) IV ONE (14:45)
[2022-04-24] MEDS ORDERED: VANCOMYCIN HCL 750 MG, VIAL MATE ADAPTER 1 EACH in D5W 250 ML IV ONE (15:00)
[2022-04-24 16:00] VITALS: BP 119/78
[2022-04-24 19:56] VITALS: BP 131/82
[2022-04-25] VITALS (19 sets, daily range): BP systolic 131–166; BP diastolic 84–104; O2SAT 97–99
[2022-04-25] MEDS: LEVALBUTEROL 1.25 MG/0.5 ML CONCENTRATE NEB NEB SCH ×4 (01:57→19:40)
[2022-04-25] MEDS ORDERED: VANCOMYCIN HCL 750 MG, VIAL MATE ADAPTER 1 EACH in D5W 250 ML IV SCH (02:00)
[2022-04-25] MEDS ORDERED: VANCOMYCIN HCL 500 MG in D5W MINI-BAG PLUS 100 ML IV SCH (03:00)
[2022-04-25] MEDS: KETOROLAC 30 MG/ML 1ML VIAL IV SCH ×4 (03:52→21:36)
[2022-04-25] MEDS: PERCOCET 5MG/325MG TAB PO PRN ×5 (03:53→21:35)
[2022-04-25] MEDS: PIPERACILLIN/TAZOBACTAM SOD 3.375 GM in D5W MINI-BAG PLUS 50 ML IV SCH ×4 (05:06→22:53)
[2022-04-25] MEDS: SENOKOT S TAB PO SCH ×2 (07:47→21:00)
[2022-04-25] MEDS: MOM 30ML SUSPENSION UDC PO SCH (07:47)
[2022-04-25 08:05] LABS: BASO # 0.1 10^3/uL (0.0-0.2); BASO % 1.5 % (0.0-1.0); EOS # 0.4 10^3/uL (0.0-0.5); HEMATOCRIT 35.9 % (36.0-47.0); HEMOGLOBIN 11.8 g/dl (12.0-15.5); LYMPH # 1.8 10^3/uL (1.5-5.0); LYMPH % 29.5 % (24.0-44.0); MEAN CORPUSCULAR HGB CONC 32.9 g/dl (32.0-36.5); MEAN CORPUSCULAR VOLUME 97.3 fl (80.0-96.0); MONO # 0.8 10^3/uL (0.0-0.8); MONO % 12.3 % (2.0-8.0); NEUTROPHILS # 2.8 10^3/uL (1.5-8.5); NEUTROPHILS % 45.6 % (36.0-66.0); PLATELET COUNT, AUTOMATED 348 10^3/uL (150-450); RED BLOOD COUNT 3.69 10^6/uL (4.00-5.40); WHITE BLOOD COUNT 6.2 10^3/uL (4.0-10.0)
[2022-04-25] MEDS: PANTOPRAZOLE 40MG VIAL IV SCH ×2 (08:10→21:36)
[2022-04-25] MEDS: ESCITALOPRAM OXALATE 10 MG TAB (LEXAPRO) PO SCH (08:11)
[2022-04-25] MEDS: POTASSIUM CHLORIDE 10MEQ SR TABLET PO SCH ×2 (08:11→21:34)
[2022-04-25] MEDS: GABAPENTIN 300 MG CAP PO SCH ×3 (08:11→21:35)
[2022-04-25] MEDS: ENOXAPARIN 40MG/0.4ML SYRINGE (J1650 PER 10MG) SC SCH (08:12)
[2022-04-25] MEDS: METOPROLOL SUCC (TopROL XL) 50MG **XL** TAB PO SCH ×2 (08:12→21:36)
[2022-04-25 08:30] LABS: BLOOD UREA NITROGEN 4 MG/DL (7-18); CALCIUM LEVEL 8.5 MG/DL (8.5-10.1); CARBON DIOXIDE LEVEL 29 MEQ/L (21-32); CHLORIDE LEVEL 107 MEQ/L (98-107); CREATININE FOR GFR 0.44 MG/DL (0.55-1.30); GLOMERULAR FILTRATION RATE > 60.0 (>60); GLUCOSE, FASTING 115 MG/DL (70-100); POTASSIUM SERUM 3.3 MEQ/L (3.5-5.1); SODIUM LEVEL 143 MEQ/L (136-145)
[2022-04-25] MEDS ORDERED: FUROSEMIDE 100MG/10ML VIAL (J1940) IV ONE (09:45)
[2022-04-25 10:15] LABS: ALT/SGPT 23 U/L (12-78)
[2022-04-25 10:16] LABS: ALBUMIN 2.1 GM/DL (3.2-5.2); BILIRUBIN,DIRECT 0.3 MG/DL (0.0-0.2); BILIRUBIN,TOTAL 0.4 MG/DL (0.2-1.0); TOTAL PROTEIN 5.6 GM/DL (6.4-8.2)
[2022-04-25] MEDS ORDERED: POTASSIUM CHLORIDE 10MEQ SR TABLET PO ONE (12:00)
[2022-04-25] MEDS: VANCOMYCIN HCL 1,000 MG, VIAL MATE ADAPTER 1 EACH in D5W 250 ML IV SCH ×2 (14:30→21:36)
[2022-04-25] MEDS: MORPHINE 4 MG/ML 1ML VIAL/SYRINGE IV PRN (22:06)
[2022-04-26] VITALS (21 sets, daily range): BP systolic 136–164; BP diastolic 84–98; O2SAT 90–98
[2022-04-26] MEDS: LEVALBUTEROL 1.25 MG/0.5 ML CONCENTRATE NEB NEB SCH ×4 (01:10→19:57)
[2022-04-26] MEDS: PERCOCET 5MG/325MG TAB PO PRN ×6 (01:36→23:30)
[2022-04-26] MEDS: PIPERACILLIN/TAZOBACTAM SOD 3.375 GM in D5W MINI-BAG PLUS 50 ML IV SCH ×4 (03:31→22:01)
[2022-04-26] MEDS: KETOROLAC 30 MG/ML 1ML VIAL IV SCH ×4 (03:31→22:09)
[2022-04-26] MEDS: VANCOMYCIN HCL 1,000 MG, VIAL MATE ADAPTER 1 EACH in D5W 250 ML IV SCH ×3 (05:18→21:10)
[2022-04-26 07:30] LABS: HEMATOCRIT 32.5 % (36.0-47.0); HEMOGLOBIN 10.5 g/dl (12.0-15.5); MEAN CORPUSCULAR HEMOGLOBIN 31.5 pg (27.0-33.0); MEAN CORPUSCULAR HGB CONC 32.3 g/dl (32.0-36.5); MEAN CORPUSCULAR VOLUME 97.6 fl (80.0-96.0); PLATELET COUNT, AUTOMATED 298 10^3/uL (150-450); RED BLOOD COUNT 3.33 10^6/uL (4.00-5.40); WHITE BLOOD COUNT 5.6 10^3/uL (4.0-10.0)
[2022-04-26 07:49] LABS: BLOOD UREA NITROGEN 5 MG/DL (7-18); CALCIUM LEVEL 8.2 MG/DL (8.5-10.1); CARBON DIOXIDE LEVEL 30 MEQ/L (21-32); CHLORIDE LEVEL 109 MEQ/L (98-107); CREATININE FOR GFR 0.41 MG/DL (0.55-1.30); GLOMERULAR FILTRATION RATE > 60.0 (>60); GLUCOSE, FASTING 85 MG/DL (70-100); POTASSIUM SERUM 3.5 MEQ/L (3.5-5.1); SODIUM LEVEL 144 MEQ/L (136-145)
[2022-04-26 08:03] LABS: EOSINOPHILS 6 % (0-3); LYMPHOCYTES 38 % (16-44); METAMYELOCYTES 1 % (0-0); MONOCYTES 9 % (0-5); NEUTROPHILS 41 % (28-66); PLATELET ESTIMATE NORMAL (NORMAL)
[2022-04-26 08:04] LABS: GIANT PLATELETS 1+
[2022-04-26 08:05] LABS: STOMATOCYTES 1+
[2022-04-26] MEDS: SENOKOT S TAB PO SCH ×2 (09:00→20:29)
[2022-04-26] MEDS: MOM 30ML SUSPENSION UDC PO SCH (09:00)
[2022-04-26] MEDS: FUROSEMIDE 40MG/4ML VIAL (J1940) IV SCH ×3 (09:16→23:27)
[2022-04-26] MEDS: POTASSIUM CHLORIDE 10MEQ SR TABLET PO SCH ×2 (09:17→20:29)
[2022-04-26] MEDS: GABAPENTIN 300 MG CAP PO SCH ×3 (09:17→20:24)
[2022-04-26] MEDS: PANTOPRAZOLE 40MG VIAL IV SCH ×2 (09:17→20:24)
[2022-04-26] MEDS: ESCITALOPRAM OXALATE 10 MG TAB (LEXAPRO) PO SCH (09:18)
[2022-04-26] MEDS: METOPROLOL SUCC (TopROL XL) 50MG **XL** TAB PO SCH ×2 (09:18→20:24)
[2022-04-26] MEDS: ENOXAPARIN 40MG/0.4ML SYRINGE (J1650 PER 10MG) SC SCH (09:19)
[2022-04-26] MEDS ORDERED: ALTEPLASE 2MG/2ML VIAL XX ONE (11:00)
[2022-04-26] MEDS: MORPHINE 4 MG/ML 1ML VIAL/SYRINGE IV PRN ×2 (11:12→23:29)
[2022-04-26] MEDS ORDERED: HYDROMORPHONE HCL 0.5 MG/ 0.5 ML SYRINGE (J1170 PER 1) IV ONE (17:00)
[2022-04-27] VITALS (26 sets, daily range): BP systolic 140–171; BP diastolic 50–97; O2SAT 90–98
[2022-04-27] MEDS: LEVALBUTEROL 1.25 MG/0.5 ML CONCENTRATE NEB NEB SCH ×4 (02:00→19:28)
[2022-04-27] MEDS: PIPERACILLIN/TAZOBACTAM SOD 3.375 GM in D5W MINI-BAG PLUS 50 ML IV SCH ×4 (03:55→22:15)
[2022-04-27] MEDS: PERCOCET 5MG/325MG TAB PO PRN ×4 (03:55→20:45)
[2022-04-27] MEDS: KETOROLAC 30 MG/ML 1ML VIAL IV SCH ×4 (04:26→23:44)
[2022-04-27] MEDS: VANCOMYCIN HCL 1,000 MG, VIAL MATE ADAPTER 1 EACH in D5W 250 ML IV SCH ×3 (06:08→22:15)
[2022-04-27] MEDS: GABAPENTIN 300 MG CAP PO SCH ×3 (08:48→20:43)
[2022-04-27] MEDS: METOPROLOL SUCC (TopROL XL) 50MG **XL** TAB PO SCH ×2 (08:49→20:45)
[2022-04-27] MEDS: ESCITALOPRAM OXALATE 10 MG TAB (LEXAPRO) PO SCH (08:49)
[2022-04-27] MEDS: POTASSIUM CHLORIDE 10MEQ SR TABLET PO SCH ×2 (08:49→20:43)
[2022-04-27] MEDS: ENOXAPARIN 40MG/0.4ML SYRINGE (J1650 PER 10MG) SC SCH (08:49)
[2022-04-27] MEDS: PANTOPRAZOLE 40MG VIAL IV SCH ×2 (08:50→20:45)
[2022-04-27] MEDS: FUROSEMIDE 40MG/4ML VIAL (J1940) IV SCH ×3 (08:50→23:43)
[2022-04-27] MEDS: MOM 30ML SUSPENSION UDC PO SCH (08:51)
[2022-04-27] MEDS: SENOKOT S TAB PO SCH ×2 (08:51→20:44)
[2022-04-27] MEDS: MORPHINE 4 MG/ML 1ML VIAL/SYRINGE IV PRN ×2 (11:49→23:44)
[2022-04-27 12:53] LABS: BLOOD UREA NITROGEN 8 MG/DL (7-18); CARBON DIOXIDE LEVEL 31 MEQ/L (21-32); CHLORIDE LEVEL 103 MEQ/L (98-107); CREATININE FOR GFR 0.64 MG/DL (0.55-1.30); GLOMERULAR FILTRATION RATE > 60.0 (>60); GLUCOSE, FASTING 94 MG/DL (70-100); POTASSIUM SERUM 3.7 MEQ/L (3.5-5.1); SODIUM LEVEL 141 MEQ/L (136-145)
[2022-04-27 12:54] LABS: CALCIUM LEVEL 8.8 MG/DL (8.5-10.1)
[2022-04-28] VITALS (11 sets, daily range): BP systolic 140–163; BP diastolic 86–99; O2SAT 93–96
[2022-04-28] MEDS: PIPERACILLIN/TAZOBACTAM SOD 3.375 GM in D5W MINI-BAG PLUS 50 ML IV SCH ×2 (04:35→10:18)
[2022-04-28] MEDS: KETOROLAC 30 MG/ML 1ML VIAL IV SCH (04:35)
[2022-04-28] MEDS: PERCOCET 5MG/325MG TAB PO PRN ×2 (04:38→12:01)
[2022-04-28] MEDS: VANCOMYCIN HCL 1,000 MG, VIAL MATE ADAPTER 1 EACH in D5W 250 ML IV SCH (05:49)
[2022-04-28 06:09] LABS: BASO # 0.1 10^3/uL (0.0-0.2); BASO % 0.8 % (0.0-1.0); EOS # 0.3 10^3/uL (0.0-0.5); HEMATOCRIT 36.1 % (36.0-47.0); HEMOGLOBIN 11.9 g/dl (12.0-15.5); LYMPH # 1.7 10^3/uL (1.5-5.0); LYMPH % 25.7 % (24.0-44.0); MEAN CORPUSCULAR HEMOGLOBIN 31.2 pg (27.0-33.0); MEAN CORPUSCULAR VOLUME 94.8 fl (80.0-96.0); MONO # 0.8 10^3/uL (0.0-0.8); MONO % 11.9 % (2.0-8.0); NEUTROPHILS # 3.6 10^3/uL (1.5-8.5); NEUTROPHILS % 54.5 % (36.0-66.0); PLATELET COUNT, AUTOMATED 272 10^3/uL (150-450); RED BLOOD COUNT 3.81 10^6/uL (4.00-5.40); WHITE BLOOD COUNT 6.5 10^3/uL (4.0-10.0)
[2022-04-28 06:40] LABS: CALCIUM LEVEL 8.8 MG/DL (8.5-10.1); CREATININE FOR GFR 1.15 MG/DL (0.55-1.30); GLOMERULAR FILTRATION RATE 56.5 (>60); POTASSIUM SERUM 4.1 MEQ/L (3.5-5.1)
[2022-04-28] MEDS: LEVALBUTEROL 1.25 MG/0.5 ML CONCENTRATE NEB NEB SCH ×2 (08:00→14:00)
[2022-04-28] MEDS ORDERED: PERCOCET 5MG/325MG TAB PO PRN (08:00)
[2022-04-28] MEDS: ESCITALOPRAM OXALATE 10 MG TAB (LEXAPRO) PO SCH (08:19)
[2022-04-28] MEDS: POTASSIUM CHLORIDE 10MEQ SR TABLET PO SCH (08:19)
[2022-04-28] MEDS: METOPROLOL SUCC (TopROL XL) 50MG **XL** TAB PO SCH (08:20)
[2022-04-28] MEDS: SENOKOT S TAB PO SCH (08:20)
[2022-04-28] MEDS: MOM 30ML SUSPENSION UDC PO SCH (08:21)
[2022-04-28] MEDS: ENOXAPARIN 40MG/0.4ML SYRINGE (J1650 PER 10MG) SC SCH (08:22)
[2022-04-28] MEDS: PANTOPRAZOLE 40MG VIAL IV SCH (08:22)
[2022-04-28] MEDS ORDERED: GABAPENTIN 300 MG CAP PO SCH ×2 (09:00→09:54)
[2022-04-28] MEDS ORDERED: amLODIPine 5 MG TAB PO SCH (09:00)
[2022-04-28] MEDS ORDERED: GABAPENTIN 400MG CAP PO SCH ×2 (09:00)
[2022-04-28] MEDS ORDERED: PROBCAP14 PO (12:29)
[2022-04-28] MEDS ORDERED: AMOX875T2 PO (12:29)
== END 2022-04-28 14:18 | disposition home or self-care (01) | DRG 438 ==
LOC: M ED 16:53 → EDBD 16:53 → M ED INP 22:41 → ENRESERV 04-18 00:33 → M MSPAV 04-18 01:56 → M PCU 04-21 15:00
PROVIDERS: ADMIT Family Medicine; ATTEND Internal Medicine Nephrology
PROC: 0W9B30Z Drainage of Left Pleural Cavity with Drainage Device, Percutaneous Approach (ICD-10-PCS; principal; 2022-04-21)
PROC: 0W9B3ZZ Drainage of Left Pleural Cavity, Percutaneous Approach (ICD-10-PCS; 2022-04-24)
PROC: 3E03317 Introduction of Other Thrombolytic into Peripheral Vein, Percutaneous Approach (ICD-10-PCS; 2022-04-26)
DX: K85.90 Acute pancreatitis without necrosis or infection, unspecified (principal); J86.9 Pyothorax without fistula; J18.9 Pneumonia, unspecified organism; J90 Pleural effusion, not elsewhere classified; L03.319 Cellulitis of trunk, unspecified; K21.9 Gastro-esophageal reflux disease without esophagitis; F43.10 Post-traumatic stress disorder, unspecified; I10 Essential (primary) hypertension; N61.0 Mastitis without abscess; F10.20 Alcohol dependence, uncomplicated; K76.0 Fatty (change of) liver, not elsewhere classified; F41.9 Anxiety disorder, unspecified; F32.A Depression, unspecified; G47.00 Insomnia, unspecified; K20.90 Esophagitis, unspecified without bleeding; K29.70 Gastritis, unspecified, without bleeding; Z79.899 Other long term (current) drug therapy; F17.210 Nicotine dependence, cigarettes, uncomplicated

== ENCOUNTER → 2022-05-20 | Outpatient (CLI) | payer MEDICARE ==
[~2022-05-20] MED LIST changes: +AMOX875T2 PO; +ISOVUE-370 76% 100ML VIAL As Ordered ONE; +PROBCAP14 PO; +THERTAB21 PO; +THIA100T22 PO
== END ==
LOC: M RAD 13:35
PROVIDERS: ATTEND Family Medicine
DX: R91.1 Solitary pulmonary nodule (principal)
CPT/HCPCS: 71260; Q9967

== ENCOUNTER → 2022-10-27 | Outpatient (CLI) | payer MEDICARE ==
[~2022-10-27] MED LIST changes: -ISOVUE-370 76% 100ML VIAL As Ordered ONE
== END ==
LOC: M PLAIMG 10:44
PROVIDERS: ATTEND Internal Medicine Pulmonary Disease
DX: R91.8 Other nonspecific abnormal finding of lung field (principal)

== ENCOUNTER → 2023-12-14 | Outpatient (REF) | LOC: M PLAIMG 11:38 | PROVIDERS: ATTEND Internal Medicine | DX: R52 Pain, unspecified (principal) ==